=== PATIENT | female | born 1970 ===

== ENCOUNTER 2020-03-13 12:06 | Emergency (ER) | payer MEDICARE, MEDICAID, SELFPAY ==
[2020-03-13 12:12] VITALS: BP 137/86; PULSE 83; RESP 16; TEMP 36.2; O2SAT 98; BMI 30.1
--- NOTE | 2020-03-13 12:22 | W.ED.URI ---
HPI - URI/Sore Throat General: Chief Complaint: General Medical Stated Complaint: covid symtpoms Time Seen by Provider: 03/13/20 12:21 Source: patient Mode of arrival: ambulatory Limitations: no limitations History of Present Illness: HPI Narrative: Patient is a 49-year-old female who presents to ED today stating she has positive exposure to COVID. Patient tells me she has had a minor cough for a week. She has absolutely no other symptoms. She has not been running fevers. MD elicited complaint: cough Able to tolerate fluids by mouth: Yes Associated symptoms: Deny abdominal pain, chills, chest pain, diarrhea, epistaxis, ear or mastoid pain, fever(s), headache(s), nasal congestion, nausea or vomiting Review of Systems Const: Denies: fever(s), chills, body aches, fatigue or malaise Eyes: Denies: change in vision or blurry vision ENMT: Denies: throat pain, odynophagia, ear or mastoid pain, change in hearing, nasal congestion or epistaxis Card: Denies: chest pain, palpitations, irregular heart rhythm, edema, swelling of feet/ankles, lightheadedness, syncope, pre-syncope, dyspnea on exertion or orthopnea Resp: Reports: non-productive cough; Denies: dyspnea, productive cough, wheezing, stridor, pain on inspiration, change in phlegm color, hemoptysis or chest congestion GI: Denies: abdominal pain, nausea, vomiting, heartburn or diarrhea : Denies: dysuria Musc: Denies: neck pain, back pain or joint pain Skin/Breast: Denies: rash Neuro: Denies: headache(s), numbness in extremities, weakness in extremities, sensory changes, difficulty walking or dizziness Physical Exam Const: COMMON NORMALS: no acute distress, average body habitus, patient oriented x3, no limitations, healthy appearing, alert and well nourished HENMT: COMMON NORMALS: normocephalic and atraumatic HEAD & SCALP: normocephalic and atraumatic Neck/C-Spine: COMMON NORMALS: full ROM, no lymphadenopathy and no meningeal signs Chest: COMMONS NORMALS: normal inspection of the chest and normal palpation of entire chest wall Resp: COMMON NORMALS: normal respiratory effort and clear to auscultation bilaterally AUSCULTATION: clear to auscultation bilaterally Cardio: COMMON NORMALS: regular rate and regular rhythm RATE: regular rate RHYTHM: regular rhythm GI: COMMON NORMALS: Normal to inspection, nondistended, normoactive bowel sounds present, Soft to palpation, non-tender, No hepatosplenomegaly present and no masses PALPATION: Yes Soft to palpation and Yes No hepatosplenomegaly present Neuro: LEONOR COMA SCALE: document GCS findings Leonor coma scale eye opening: Spontaneous Leonor coma scale verbal response: Orientated [place] coma scale motor response: Obey commands Leonor coma scale total score: 15 COMMON NORMALS: patient oriented x3 SENSORIUM/ORIENTATION: Yes alert MENINGEAL SIGNS: Yes no meningeal signs Skin: COMMON NORMALS: no rashes or lesions noted GENERAL SKIN EXAM: no rashes or lesions noted Course Vital Signs: Vital signs: Vital Signs Temperature 97.1 F L 03/13/20 12:12 Pulse Rate 83 03/13/20 12:12 Respiratory Rate 18 03/13/20 12:44 Blood Pressure 137/86 03/13/20 12:12 Pulse Oximetry 98 03/13/20 12:12 MDM - URI/Sore Throat MDM Narrative: Medical decision making narrative: Patient clinically is in absolutely no acute distress. Her vital signs are stable. Her only symptom is a minor cough for a week. Her lung sounds are normal. At this time there is absolutely no indication for imaging or lab work from the emergency department. I will obtain outpatient COVID swab and patient is stable for discharge with quarantine instructions. Discharge Plan Discharge Patient Disposition: Home Clinical Impression: Cough with exposure to COVID-19 virus Condition: Stable Discharge Orders: Discharge Order (Routine); Ordered 03/13/20 Ordered By: Amarilys Pisano Referrals: Cedrick Roper MD [Primary Care Provider] - Activity Restrictions/Additional Instructions: You need to quarantine until you obtain results of your COVID swab. If positive you need to continue to quarantine for another 7 days. Discharge Date/Time: 03/13/20 13:01 Coding Level of Care Code ED Motor Vehicle Light Assembler for Chg Fwd Exam Comprehensive
[2020-03-13 12:44] VITALS: RESP 18
--- NOTE | 2020-03-13 13:01 | PC.NURSE ---
patient swabbed for covid at this time
[2020-03-14 13:22] LABS: Quest SARS-CoV-2 RNA DETECTED (NOT DETECTED)
== END 2020-03-13 13:01 | disposition home or self-care (01) ==
LOC: ER 12:39
PROVIDERS: Emergency Provider Physician Assistant; PCP Family Medicine
DX: U07.1 COVID-19 (principal)
CPT/HCPCS: 12345; 87635; 99281; 99282

== ENCOUNTER 2020-03-31 01:42 | Emergency (ER) | payer MEDICARE, MEDICAID, SELFPAY ==
[2020-03-31 01:52] VITALS: BP 123/95; PULSE 94; RESP 16; TEMP 36.9; O2SAT 94; BMI 30.9
--- NOTE | 2020-03-31 01:56 | ED_ITS ---
HPI - Extremity Problem General: Chief complaint: Extremity Injury, Lower Stated complaint: abrasion on left ankle Time Seen by Provider: 03/31/20 01:49 History of Present Illness: HPI Narrative: Patient is a 49-year-old female comes to the ED with an abrasion on left ankle with concerns of possible infection. For the past couple days patient has had an abrasion on left ankle and that is gotten more tender and red. No purulent drainage. Associated symptoms: Deny chest pain, fever(s) or rash Review of Systems Const: Denies: fever(s), chills or fatigue Eyes: Denies: change in vision or eye discomfort ENMT: Denies: throat pain, odynophagia, nasal discharge or nasal congestion Card: Denies: chest pain, palpitations, edema, swelling of feet/ankles, dyspnea on exertion or orthopnea Resp: Denies: dyspnea, productive cough or non-productive cough GI: Denies: abdominal pain, nausea, vomiting, diarrhea, constipation or hematochezia : Denies: flank pain, dysuria or hematuria Musc: Denies: neck pain, back pain or extremity swelling Skin/Breast: Reports: new lesions (Abrasion on left ankle.); Denies: rash Neuro: Denies: headache(s), numbness in extremities or weakness in extremities Physical Exam Const: COMMON NORMALS: no acute distress, patient oriented x3, healthy appe aring and alert EXAM LIMITATIONS: other limitations (Mental Developmental disorder.) GENERAL APPEARANCE: cooperative and comfortable HENMT: COMMON NORMALS: normocephalic HEAD & SCALP: normocephalic MOUTH: Normal oral and palatal mucosa present THROAT: posterior oropharynx normal and uvula midline Eye: COMMON NORMALS: Equal, round and reactive pupils present PUPIL: Yes Equal, round and reactive pupils present Neck/C-Spine: COMMON NORMALS: supple GENERAL: Yes normal visual inspection Resp: COMMON NORMALS: normal respiratory effort, No retractions, No use of accessory muscles and clear to auscultation bilaterally AUSCULTATION: clear to auscultation bilaterally Cardio: COMMON NORMALS: regular rate, regular rhythm, S1 normal heart sound present, S2 normal heart sound present, No gallops present (Cardio), No clicks present (Cardio), No murmurs present (Cardio) and Peripheral pulses 2+ throughout RATE: regular rate RHYTHM: regular rhythm HEART SOUNDS: S1 normal heart sound present and S2 normal heart sound present PERIPHERAL PULSES: Peripheral pulses 2+ throughout GI: COMMON NORMALS: Normal to inspection, nondistended, normoactive bowel sounds present, Soft to palpation, non-tender and no masses PALPATION: Yes Soft to palpation : COMMON NORMALS: Yes no CVA tenderness BLADDER/KIDNEY EXAM: Yes no CVA tenderness Back/Pelvis: COMMON NORMALS: no CVA tenderness Extremity: COMMON NORMALS: no pedal edema NARRATIVE EXTREMITY EXAM: Superficial abrasion with surrounding erythema and warmth. Tender to palpation. Suggestive of some developing cellulitis. GENERAL: Yes normal exam except as noted Neuro: COMMON NORMALS: patient oriented x3 and moves all extremities SENSORIUM/ORIENTATION: Yes alert Skin: NARRATIVE SKIN EXAM: Superficial abrasion with surrounding erythema and warmth. Tender to palpation. Suggestive of some developing cellulitis. GENERAL SKIN EXAM: dry skin Course Vital Signs: Vital signs: Vital Signs Temperature 98.4 F 03/31/20 01:52 Pulse Rate 94 03/31/20 01:52 Respiratory Rate 16 03/31/20 01:52 Blood Pressure 123/95 03/31/20 01:52 Pulse Oximetry 94 03/31/20 01:52 MDM - Extremity (Nontraumatic) MDM Narrative: Medical decision making narrative: Patient is a 49-year-old female comes in the ED with an abrasion on left ankle. Physical exam shows some erythema, warmth and tenderness surrounding the abrasion, suggestive of cellulitis. Patient was sent home with a prescription for cephalexin and told to follow-up with PCP in 7 to 10 days for reevaluation. Return to ED precautions given. Patient understood and agree with plan. Discharge Plan Discharge Patient Disposition: Home Clinical Impression: Cellulitis Qualifiers: Site of cellulitis: extremity Site of cellulitis of extremity: lower extremity Laterality: left Qualified Code(s): L03.116 - Cellulitis of left lower limb Condition: Stable Prescriptions: New cephalexin 500 mg capsule 500 mg PO BID 7 Days Qty: 14 RF: 0 Discharge Orders: Discharge Order (Routine); Ordered 03/31/20 Ordered By: Kana Barraza Referrals: Cedrick Roper MD [Primary Care Provider] - Discharge Diet: Regular Discharge Activity: Resume usual activity Patient Instructions: Cellulitis (ED) Activity Restrictions/Additional Instructions: Follow-up with medical provider as directed in 7-10 days. Take medications as prescribed. Return to the ER or your medical provider if condition worsens. Please read and understand discharge instructions. If any questions, please ask. Discharge Date/Time: 03/31/20 02:51 Coding Level of Care Code ED Wedding Transportation Driver for Ariella Fwfranklyn Exam Comprehensive
[2020-03-31] MEDS: cephALEXin 500 mg Capsule PO (02:34)
== END 2020-03-31 02:51 | disposition home or self-care (01) ==
PROVIDERS: Emergency Provider Physician Assistant; PCP Family Medicine
DX: L03.116 Cellulitis of left lower limb (principal)
CPT/HCPCS: 12345; 99281; 99282

== ENCOUNTER → 2020-04-12 10:08 | Outpatient (BNVA) | payer MEDICARE, MEDICAID, SELFPAY | PROVIDERS: PCP Family Medicine; Visit Provider Family Medicine Adult Medicine | DX: E03.9 Hypothyroidism, unspecified (principal); Z00.00 Encounter for general adult medical examination without abnormal findings | CPT/HCPCS: 80053; 80061; 84443; 85025 ==

== ENCOUNTER → 2020-04-13 10:08 | Outpatient (BNVA) | payer MEDICARE, MEDICAID, SELFPAY | PROVIDERS: PCP Family Medicine; Referring Provider Family Medicine Adult Medicine; Visit Provider Podiatrist Foot & Ankle Surgery | DX: M79.671 Pain in right foot (principal); M79.672 Pain in left foot; M20.12 Hallux valgus (acquired), left foot; M20.11 Hallux valgus (acquired), right foot | CPT/HCPCS: 73630 ==

== ENCOUNTER → 2020-10-14 08:25 | Outpatient (BNVA) | payer MEDICARE, MEDICAID, SELFPAY | PROVIDERS: PCP Family Medicine Adult Medicine; Visit Provider Family Medicine Adult Medicine | DX: E03.9 Hypothyroidism, unspecified (principal); R74.8 Abnormal levels of other serum enzymes | CPT/HCPCS: 80053; 84443 ==

== ENCOUNTER → 2021-01-03 10:36 | Outpatient (BNVA) | payer MEDICARE, MEDICAID, SELFPAY | PROVIDERS: PCP Family Medicine Adult Medicine; Visit Provider Family Medicine Adult Medicine | DX: R21 Rash and other nonspecific skin eruption (principal); E03.9 Hypothyroidism, unspecified; L01.00 Impetigo, unspecified; L23.9 Allergic contact dermatitis, unspecified cause | CPT/HCPCS: 84443 ==

== ENCOUNTER → 2021-01-13 14:30 | Outpatient (BNVA) | payer MEDICARE, MEDICAID, SELFPAY | PROVIDERS: PCP Family Medicine Adult Medicine; Visit Provider Registered Nurse Neonatal Intensive Care | DX: N39.0 Urinary tract infection, site not specified (principal) | CPT/HCPCS: 81000 ==

== ENCOUNTER 2021-03-20 21:21 | Emergency (ER) | payer MEDICARE, MEDICAID, SELFPAY ==
[2021-03-20 21:36] VITALS: BP 146/89; PULSE 80; RESP 16; TEMP 36.8; O2SAT 95; BMI 31.8
--- NOTE | 2021-03-21 00:50 | W.ED.ABDPA2 ---
HPI - Abdominal Pain General: Chief Complaint: Abdominal Pain Stated Complaint: left side pain Time Seen by Provider: 03/21/21 00:50 History of Present Illness: HPI narrative: Ms. Keys is a 50-year-old lady with significant past medical history of hypothyroidism who presents emerge department due to abdominal pain. Symptom onset was gradual yesterday and pain is primarily in the left upper quadrant. It is feels achy and sharp. It is continually worsened. There are no specific exacerbating relieving factors that she can identify. No associated fevers, chills, nausea, vomiting, chest pain, or changes in bowel movements. She has had normal bowel movements. She denies similar episodes in the past. No history of abdominal surgeries. Review of Systems General: Reports: 10 or more systems reviewed and unremarkable except in HPI and below Narrative: CONSTITUTIONAL: denies fever, fatigue, weakness EYES - denies pain, denies loss of vision EARS - denies ear issues. NOSE - denies congestion or rhinorrhea. THROAT - denies sore throat or difficulty swallowing. CARDIOVASCULAR - denies chest pain and palpitations RESPIRATORY - denies shortness of breath and cough GASTROINTESTINAL -see HPI GENITOURINARY - denies dysuria or urinary frequency MUSCULOSKELETAL- denies deformity or pain SKIN - denies rashes or new changed skin lesions NEUROLOGIC - denies focal weakness or sensory changes HEMATOLOGIC/LYMPHATIC - denies easy bruising or lymphadenopathy. PFS ED PFSH: Medical History Adult hypothyroidism Allergic contact dermatitis Cellulitis of left ankle Encounter for wellness examination Impetigo any site Social History Smoking and tobacco status: never smoked Second hand smoke exposure: No Alcohol intake: never Desire information about alcohol rehabilitation?: No Desire information about substance/drug rehabilitation?: No Physical Exam Narrative: EXAM NARRATIVE: GENERAL/CONSTITUTIONAL - well-appearing. No acute distress. Eyes - PERRL, no conjunctival injection ENMT - Atraumatic external nose and ears. Moist mucous membranes NECK - supple. trachea midline CARDIOVASCULAR - regular rate and rhythm. Peripheral pulses 2+ and equal RESPIRATORY -clear to auscultation bilaterally. No retractions or accessory muscle use. ABDOMEN/GI -moderate tenderness to palpation in the left upper quadrant without rebound. No remote evidence of peritonitis MSK - Extremities without obvious deformity or tenderness to palpation SKIN - Warm, Dry NEURO - alert and appropriately oriented. strength and sensation intact. Moves all extremities equally. PSYCH - Appropriate mood and affect Course ED course: - Patient was seen and evaluated by me at bedside - Patient placed on cardiac monitors, IV access obtained - Initial evaluation notable for no acute distress, nontoxic appearance. - Labs notable for no significant abnormalities - Imaging notable for as noted and read - Upon serial reexamination after treatment the patient was similar - Based on patient history, evaluation, labs, and imaging as interpreted the most likely cause of the patient's condition is unclear, may be pneumonia per radiology read and/or epiploic appendagitis and/or mild colitis. - The results of ED evaluation were discussed with the patient including prescriptions and/or symptomatic cares (if applicable) including appropriate and responsible use, followup plan, and return precautions. The patient verbalized understanding and felt safe for discharge. - Initially wrote for Augmentin for dual coverage however apparently the patient has had urinary tract infections after taking Augmentin and thus this was changed to Cipro Flagyl. - Patient discharged in satisfactory condition. Vital Signs: Vital signs: Vital Signs Temperature 98.2 F 03/20/21 21:36 Pulse Rate 78 03/21/21 05:01 Respiratory Rate 18 03/21/21 05:01 Blood Pressure 112/71 03/21/21 05:01 Pulse Oximetry 97 03/21/21 05:01 MDM - Abdominal Pain Medical Records: Attestation: I reviewed the patient's medical records. Lab Data: Attestation: I reviewed the patient's lab results. Labs: Lab Results 03/21/21 03/21/21 03/21/21 Range/Units 02:00 02:00 02:00 WBC 7.7 (4.0-10.0) 10^3/ uL RBC 4.87 (4.1-5.3) 10^6/u L Hgb 15.1 (11.5-15.3) g/dL Hct 44.2 (37.0-47.0) % MCV 90.8 (81-99) fl MCH 31.0 (28.0-34.0) pg MCHC 34.2 (30.0-36.0) g/dL RDW 12.0 L (12.1-15.1) % Plt Count 166 (130-400) 10^3/c mm MPV 13.2 H (7.4-10.4) fL Neut % (Auto) 61.6 % Lymph % (Auto) 25.1 % Mccreary % (Auto) 10.7 % Eos % (Auto) 1.9 % Baso % (Auto) 0.4 % Neut # (Auto) 4.77 (1.8-7.7) 10^3/u L Lymph # (Auto) 1.9 (0.8-4.8) 10^3/u L Mccreary # (Auto) 0.8 (0.2-0.9) 10^3/u L Eos # (Auto) 0.2 (0.0-0.8) 10^3/u L Baso # (Auto) 0.0 (0.0-0.1) 10^3/u L Nucleated RBC % (a uto) 0 % Nucleated RBCs # 0.0 /100WBC Sodium Cancelled Potassium Cancelled Chloride Cancelled Carbon Dioxide Cancelled Anion Gap Cancelled BUN Cancelled Creatinine Cancelled GFR Calculation Cancelled Glucose Cancelled Calculated Osmolal ity Cancelled Lactate 1.0 (0.5-2.2) mmol/L Calcium Cancelled Total Bilirubin Cancelled AST Cancelled ALT Cancelled Alkaline Phosphata se Cancelled Troponin T Baselin e Total Protein Cancelled Albumin Cancelled Globulin Cancelled Lipase Cancelled Urine Color (Yellow) Urine Appearance (CLEAR) Urine pH (5-7) Ur Specific Gravit y (1.005-1.030) Urine Protein (Negative) Urine Glucose (UA) (Normal) Urine Ketones (Negative) Urine Blood (Negative) Urine Nitrate (Negative) Urine Bilirubin (Negative) Urine Urobilinogen (Negative) mg/dL Ur Leukocyte Madison ase (Negative) 03/21/21 03/21/21 03/21/21 Range/Units 02:00 03:08 03:15 WBC (4.0-10.0) 10^3/ uL RBC (4.1-5.3) 10^6/u L Hgb (11.5-15.3) g/dL Hct (37.0-47.0) % MCV (81-99) fl MCH (28.0-34.0) pg MCHC (30.0-36.0) g/dL RDW (12.1-15.1) % Plt Count (130-400) 10^3/c mm MPV (7.4-10.4) fL Neut % (Auto) % Lymph % (Auto) % Mccreary % (Auto) % Eos % (Auto) % Baso % (Auto) % Neut # (Auto) (1.8-7.7) 10^3/u L Lymph # (Auto) (0.8-4.8) 10^3/u L Mccreary # (Auto) (0.2-0.9) 10^3/u L Eos # (Auto) (0.0-0.8) 10^3/u L Baso # (Auto) (0.0-0.1) 10^3/u L Nucleated RBC % (a uto) % Nucleated RBCs # /100WBC Sodium 140 Potassium 4.3 Chloride 106 Carbon Dioxide 23 Anion Gap 15.3 BUN 15 Creatinine 0.6 GFR Calculation 105.0 Glucose 94 Calculated Osmolal ity 291 Lactate (0.5-2.2) mmol/L Calcium 8.6 Total Bilirubin 0.3 AST 19 ALT 29 Alkaline Phosphata se 71 Troponin T Baselin e Cancelled Total Protein 6.8 Albumin 4.1 Globulin 2.7 Lipase 31 Urine Color Yellow (Yellow) Urine Appearance Clear (CLEAR) Urine pH 5 (5-7) Ur Specific Gravit y 1.010 (1.005-1.030) Urine Protein Neg (Negative) Urine Glucose (UA) Norm (Normal) Urine Ketones Negative (Negative) Urine Blood Neg (Negative) Urine Nitrate Negative (Negative) Urine Bilirubin Neg (Negative) Urine Urobilinogen Norm (Negative) mg/dL Ur Leukocyte Madison ase Negative (Negative) 03/21/21 Range/Units 03:15 WBC (4.0-10.0) 10^3/ uL RBC (4.1-5.3) 10^6/u L Hgb (11.5-15.3) g/dL Hct (37.0-47.0) % MCV (81-99) fl MCH (28.0-34.0) pg MCHC (30.0-36.0) g/dL RDW (12.1-15.1) % Plt Count (130-400) 10^3/c mm MPV (7.4-10.4) fL Neut % (Auto) % Lymph % (Auto) % Mccreary % (Auto) % Eos % (Auto) % Baso % (Auto) % Neut # (Auto) (1.8-7.7) 10^3/u L Lymph # (Auto) (0.8-4.8) 10^3/u L Mccreary # (Auto) (0.2-0.9) 10^3/u L Eos # (Auto) (0.0-0.8) 10^3/u L Baso # (Auto) (0.0-0.1) 10^3/u L Nucleated RBC % (a uto) % Nucleated RBCs # /100WBC Sodium Potassium Chloride Carbon Dioxide Anion Gap BUN Creatinine GFR Calculation Glucose Calculated Osmolal ity Lactate (0.5-2.2) mmol/L Calcium Total Bilirubin AST ALT Alkaline Phosphata se Troponin T Baselin e 6 Total Protein Albumin Globulin Lipase Urine Color (Yellow) Urine Appearance (CLEAR) Urine pH (5-7) Ur Specific Gravit y (1.005-1.030) Urine Protein (Negative) Urine Glucose (UA) (Normal) Urine Ketones (Negative) Urine Blood (Negative) Urine Nitrate (Negative) Urine Bilirubin (Negative) Urine Urobilinogen (Negative) mg/dL Ur Leukocyte Madison ase (Negative) Discharge Plan Discharge Patient Disposition: Home Clinical Impression: Abdominal pain, Epiploic appendagitis, Community acquired pneumonia Condition: Stable Prescriptions: New ciprofloxacin HCl 500 mg tablet 500 mg PO BID 7 Days Qty: 14 RF: 0 Flagyl 500 mg tablet 500 mg PO Q8H 7 Days Qty: 21 RF: 0 No Action multivitamin Capsule 1 cap PO DAILY RF: 0 zinc 50 mg tablet 50 mg PO DAILY RF: 0 acetaminophen 500 mg capsule 500 mg PO Q6H PRNRF: 0 K2 Plus D3 1,000-100 unit-mcg tablet 1 tab PO DAILY RF: 0 nitrofurantoin monohyd/m-cryst [Macrobid] 100 mg capsule 100 mg PO BID 5 Days Qty: 10 RF: 0 levothyroxine 75 mcg tablet 75 mcg PO DAILY 90 Days Qty: 90 RF: 0 Discharge Orders: Discharge ED (Routine); Ordered 03/21/21 Ordered By: Regulo Smith Referrals: Wale Newton MD [Primary Care Provider] - Discharge Diet: Usual diet Discharge Activity: Resume usual activity Patient Instructions: Abdominal Pain (ED), Pneumonia (ED), Infectious Colitis (ED) Coding Level of Care Code ED Regional Business Manager for Ariella Ziegler
--- NOTE | 2021-03-21 00:56 | XRR_ITS ---
PROCEDURE INFORMATION: Exam: XR Chest Exam date and time: 03/21/2021 12:56 AM Age: 50 years old Clinical indication: Pain; Left-sided; Additional info: Left side pain, ? referred TECHNIQUE: Imaging protocol: XR of the chest. Views: 1 view. COMPARISON: No relevant prior studies available. FINDINGS: Lungs: Low lung volumes. There is a patchy airspace opacity in the left lower lobe, concerning for pneumonia. Minimal right basilar atelectasis noted. Pleural spaces: Unremarkable. No pleural effusion. No pneumothorax. Heart/Mediastinum: Unremarkable. No cardiomegaly. Bones/joints: Unremarkable. XR/XR chest 1V portable [id number] IMPRESSION: Imaging findings concerning for left lower lobe pneumonia, clinical correlation is recommended.
--- NOTE | 2021-03-21 00:56 | CTR_ITS ---
PROCEDURE INFORMATION: Exam: CT Abdomen And Pelvis With Contrast Exam date and time: 03/21/2021 12:56 AM Age: 50 years old Clinical indication: Abdominal pain; Localized; Left; Additional info: Luq pain TECHNIQUE: Imaging protocol: Computed tomography of the abdomen and pelvis with contrast. Radiation optimization: All CT scans at this facility use at least one of these dose optimization techniques: automated exposure control; mA and/or kV adjustment per patient size (includes targeted exams where dose is matched to clinical indication); or iterative reconstruction. Contrast material: OMNI 300; Contrast volume: 95 ml; Contrast route: INTRAVENOUS (IV); COMPARISON: CR (CHEST, ) 03/21/2021 1:38 AM RADIATION DOSE METRICS: Total DLP (mGy-cm): 1856.83 FINDINGS: Lungs: Streaky bibasilar atelectasis noted. No consolidation. Liver: The liver is diffusely decreased in density, compatible with hepatic steatosis. No discrete mass lesion identified. Gallbladder and bile ducts: Normal. No calcified stones. No ductal dilation. Pancreas: Normal. No ductal dilation. Spleen: Normal. No splenomegaly. Adrenal glands: Normal. No mass. Kidneys and ureters: Normal. No hydronephrosis. Stomach and bowel: Along the anterior aspect/anti mesenteric border of the proximal descending colon, there is an ovoid fat density structure measuring approximately 2.5 cm in length, with thin density rim, mild stranding of the surrounding fat, and possible minimal thickening of the adjacent colon wall, which is out of proportion to the degree of inflammation surrounding this lesion. Scattered colonic diverticuli seen. Appendix: No evidence of appendicitis. Intraperitoneal space: Unremarkable. No free air. No significant fluid collection. Vasculature: Unremarkable. No abdominal aortic aneurysm. Lymph nodes: Unremarkable. No enlarged lymph nodes. Urinary bladder: Unremarkable as visualized. Reproductive: Unremarkable as visualized. Bones/joints: Unremarkable. No acute fracture. Soft tissues: Unremarkable. CT/CT abdomen pelvis w con* [id number] IMPRESSION: Imaging findings of epiploic appendagitis in the proximal descending colon. Mild/early diverticulitis can have this appearance. Radiation Dose CTDIVOL = (mGy): DLP = 1856.83 (mGy-cm)
[2021-03-21] MEDS: sodium chloride 0.9% 500 ML IV (01:50)
[2021-03-21] MEDS: ketorolac 30 mg/mL INJ 15 MG IVP (01:55)
[2021-03-21] MEDS: acetaminophen 325 mg Tablet 650 MG PO (02:00)
[2021-03-21] MEDS: iohexol 300 mg/mL 100 mL Btl IV (02:30)
[2021-03-21 02:36] LABS: Basophils % 0.4 %; Eosinophils # 0.2 10^3/uL (0.0-0.8); Eosinophils % 1.9 %; Hematocrit 44.2 % (37.0-47.0); Hemoglobin 15.1 g/dL (11.5-15.3); Lymphocytes # 1.9 10^3/uL (0.8-4.8); Lymphocytes % 25.1 %; Mean Corpuscular HGB Conc 34.2 g/dL (30.0-36.0); Mean Corpuscular Volume 90.8 fl (81-99); Mean Platelet Volume 13.2 fL (7.4-10.4); Monocytes # 0.8 10^3/uL (0.2-0.9); Monocytes % 10.7 %; Neutrophils # 4.77 10^3/uL (1.8-7.7); Neutrophils % 61.6 %; Nucleated Red Blood Cells % 0 %; Platelet Count 166 10^3/cmm (130-400); Red Blood Count 4.87 10^6/uL (4.1-5.3); White Blood Count 7.7 10^3/uL (4.0-10.0)
[2021-03-21 03:25] LABS: Add Urine Microscopic? NO; Charge for UA Resulting for Rev
[2021-03-21 03:28] LABS: Bilirubin Urine Neg (Negative); Blood Urine Neg (Negative); Glucose Urine UA Norm (Normal); Ketones Urine Negative (Negative); Leukocyte Esterase Urine Negative (Negative); Nitrate Urine Negative (Negative); Protein Urine Neg (Negative); Urine Appearance Clear (CLEAR); Urine Color Yellow (Yellow); Urobilinogen Urine Norm (Negative); pH Urine 5 (5-7)
[2021-03-21 04:01] VITALS: BP 108/73; PULSE 84; RESP 18; O2SAT 97
[2021-03-21 04:03] LABS: Troponin(5th) Baseline 6 ng/L (0-10)
[2021-03-21 04:04] LABS: Alanine Aminotransferase 29 U/L (0-33); Albumin Level 4.1 g/dL (3.5-5.2); Alkaline Phosphatase 71 IU/L (35-105); Anion Gap 15.3 (5-19); Aspartate Amino Transferase 19 U/L (0-32); Blood Urea Nitrogen 15 mg/dL (6-20); Calcium 8.6 mg/dL (8.5-10.5); Carbon Dioxide 23 mmol/L (22-29); Chloride 106 mmol/L (98-107); Globulin 2.7 g/dL (1.3-4.6); Glucose 94 mg/dL (65-115); Lipase 31 U/L (13-60); Osmolality Calculated 291 mOsm/kg (285-295); Potassium 4.3 mmol/L (3.5-5.1); Sodium 140 mmol/L (136-145); Total Bilirubin 0.3 mg/dL (0.15-1.2); Total Protein 6.8 g/dL (6.6-8.7)
[2021-03-21 05:01] VITALS: BP 112/71; PULSE 78; RESP 18; O2SAT 97
== END 2021-03-21 05:00 | disposition home or self-care (01) ==
PROVIDERS: Emergency Provider Emergency Medicine; PCP Family Medicine Adult Medicine
DX: J18.9 Pneumonia, unspecified organism (principal); K63.89 Other specified diseases of intestine
CPT/HCPCS: 71045; 74177; 80053; 81003; 83605; 83690; 84484; 85025; 96361; 96374; 99283; J1885; J7040; Q9967

== ENCOUNTER → 2021-03-31 08:14 | Outpatient (BNVA) | payer MEDICARE, MEDICAID, SELFPAY | PROVIDERS: PCP Family Medicine Adult Medicine; Visit Provider Family Medicine Adult Medicine | DX: E03.9 Hypothyroidism, unspecified (principal); Z13.220 Encounter for screening for lipoid disorders; Z13.6 Encounter for screening for cardiovascular disorders | CPT/HCPCS: 80061; 84443 ==

== ENCOUNTER → 2021-06-20 10:24 | Outpatient (BNVA) | payer MEDICARE, MEDICAID, SELFPAY | PROVIDERS: PCP Family Medicine Adult Medicine; Visit Provider Family Medicine Adult Medicine | DX: Z00.00 Encounter for general adult medical examination without abnormal findings (principal); E03.9 Hypothyroidism, unspecified; Z23 Encounter for immunization | CPT/HCPCS: 84443 ==

== ENCOUNTER 2021-09-14 11:38 | Outpatient (CLI) | payer MEDICARE, MEDICAID, SELFPAY ==
--- NOTE | 2021-09-14 11:44 | MM_ITS ---
WS: [id number] BILATERAL DIGITAL SCREENING MAMMOGRAPHY WITH CAD AND 3-D TOMOSYNTHESIS CLINICAL INFORMATION: screening HISTORY: Screening mammogram. No current complaints. COMPARISON: TECHNIQUE: Bilateral CC and MLO views. FINDINGS: Scattered fibroglandular densities bilaterally. A few incidental stable amorphous calcifications uppe r outer LEFT breast. No suspicious focal mass, asymmetry, calcifications, or architectural distortion . No evidence of malignancy. MM/[place] [id number] IMPRESSION: BI-RADS: 2-Benign FOLLOW UP: 1 Year Follow-up Recommend return to annual screening mammography.
== END 2021-09-14 11:39 | disposition home or self-care (01) ==
LOC: RADSHAW 11:41
PROVIDERS: PCP Family Medicine Adult Medicine; Visit Provider Family Medicine Adult Medicine
DX: Z12.31 Encounter for screening mammogram for malignant neoplasm of breast (principal)
CPT/HCPCS: 77063; 77067

== ENCOUNTER → 2021-09-20 11:18 | Outpatient (BNVA) | payer MEDICAID, SELFPAY | PROVIDERS: PCP Family Medicine Adult Medicine; Visit Provider Family Medicine Adult Medicine | DX: Z00.00 Encounter for general adult medical examination without abnormal findings (principal) | CPT/HCPCS: 80053; 80061; 83036; 84443; 85025 ==

== ENCOUNTER 2021-09-25 21:58 | Emergency (ER) | payer MEDICARE, MEDICAID, SELFPAY ==
[2021-09-25 22:13] VITALS: BP 143/84; PULSE 83; RESP 18; TEMP 36.9; O2SAT 96; BMI 31.3
--- NOTE | 2021-09-26 00:08 | W.ED.DENTAL ---
HPI - Dental/Oral General: Chief complaint: Dental/Oral Stated complaint: Absessed Tooth Time Seen by Provider: 09/25/21 23:43 History of Present Illness: Patient is a 51-year-old female comes to the ED with dental pain. She started developing dental pain in the left lower jaw approximately 3 days ago. Today she started developing swelling in her left mandible. She rates her pain a 10 out of 10. Denies any other symptoms. She has a dentist she set up to see the next couple weeks. Associated symptoms: Denies fever(s) or odynophagia Review of Systems Const: Denies: fever(s), chills or fatigue Eyes: Denies: change in vision or eye discomfort ENMT: Reports: dental pain; Denies: throat pain, odynophagia, nasal discharge or nasal congestion Card: Denies: chest pain, palpitations, edema, swelling of feet/ankles, dyspnea on exertion or orthopnea Resp: Denies: dyspnea, productive cough or non-productive cough GI: Denies: abdominal pain, nausea, vomiting, diarrhea, constipation or hematochezia : Denies: flank pain, dysuria or hematuria Musc: Denies: neck pain, back pain or extremity swelling Skin/Breast: Denies: rash or new lesions Neuro: Denies: headache(s), numbness in extremities or weakness in extremities PFSH ED PFSH: Medical History Adult hypothyroidism Allergic contact dermatitis COVID Pos COVID test 03/13/2021 GERD (gastroesophageal reflux disease) Impetigo any site Obesity Stress incontinence, female Social History Smoking and tobacco status: never smoked Second hand smoke exposure: No Alcohol intake: never Desire information about alcohol rehabilitation?: No Desire information about substance/drug rehabilitation?: No Physical Exam Const: COMMON NORMALS: no acute distress, patient oriented x3 and alert GENERAL APPEARANCE: cooperative and comfortable HENMT: COMMON NORMALS: normocephalic HEAD & SCALP: normocephalic FACE & SINUS: edema on the left mandible MOUTH: Normal oral and palatal mucosa present TEETH & GINGIVA: Yes abnormal tooth and associated gingiva lower left second molar tender and with associated gingival edema, Yes caries and Yes poor dentition THROAT: posterior oropharynx normal and uvula midline Neck/C-Spine: COMMON NORMALS: supple GENERAL: Yes normal visual inspection Resp: COMMON NORMALS: normal respiratory effort, No retractions, No use of accessory muscles and clear to auscultation bilaterally AUSCULTATION: clear to auscultation bilaterally Cardio: COMMON NORMALS: regular rate, regular rhythm, S1 normal heart sound present, S2 normal heart sound present, No gallops present (Cardio), No clicks present (Cardio), No murmurs present (Cardio) and Peripheral pulses 2+ throughout RATE: regular rate RHYTHM: regular rhythm HEART SOUNDS: S1 normal heart sound present and S2 normal heart sound present PERIPHERAL PULSES: Peripheral pulses 2+ throughout GI: COMMON NORMALS: Normal to inspection, nondistended, normoactive bowel sounds present, Soft to palpation, non-tender and no masses PALPATION: Yes Soft to palpation : COMMON NORMALS: Yes no CVA tenderness BLADDER/KIDNEY EXAM: Yes no CVA tenderness Back/Pelvis: COMMON NORMALS: no CVA tenderness Extremity: COMMON NORMALS: normal to inspection Neuro: COMMON NORMALS: patient oriented x3 and moves all extremities SENSORIUM/ORIENTATION: Yes alert Skin: GENERAL SKIN EXAM: dry skin Course Vital Signs: Vital signs: Vital Signs Temperature 98.5 F 09/25/21 22:13 Pulse Rate 82 09/26/21 00:26 Respiratory Rate 18 09/26/21 00:26 Blood Pressure 143/84 09/25/21 22:13 Pulse Oximetry 96 09/26/21 00:26 MDM - Dental/Oral Medical Decision Making Patient is a 51-year-old female comes to the ED with dental pain on left mandible. She has some mild left mandible facial swelling. Poor dentition with some left left lower molar dental decay and gingival edema. She appears nontoxic in no acute distress. Vitals are stable. Patient diagnosed dental infection and was discharged home with a prescription for clindamycin. She has a dentist that she will be following up with in the next couple weeks. Return to ED precautions given. Patient understood and agreed with plan. Discharge Plan Discharge Patient Disposition: Home Clinical Impression: Dental infection Condition: Stable Prescriptions: New clindamycin HCl 150 mg capsule 150 mg PO QID 7 Days Qty: 28 0RF No Action multivitamin Capsule 1 cap PO DAILY 0RF acetaminophen 500 mg capsule 500 mg PO Q6H PRN0RF K2 Plus D3 1,000-100 unit-mcg tablet 1 tab PO DAILY 0RF oxybutynin chloride 10 mg tablet extended release 24hr 10 mg PO DAILY Qty: 30 5RF levothyroxine 100 mcg tablet 100 mcg PO DAILY Qty: 90 3RF pantoprazole 20 mg tablet,delayed release (DR/EC) See Rx Instructions .ROUTE .COMPLEX 90 Days Qty: 90 1RF Dose Instruction: TAKE 1 TABLET BY MOUTH AT BEDTIME NEEDED FOR ACID REFLUX Rx Instructions: TAKE 1 TABLET BY MOUTH AT BEDTIME NEEDED FOR ACID REFLUX ascorbic acid (vitamin C) PO DAILY 0RF Discharge Orders: Discharge ED (Routine); Ordered 09/26/21 Ordered By: Kana Barraza Referrals: Wale Newton MD [Primary Care Provider] - Discharge Diet: Regular Discharge Activity: Increase activity as tolerated Patient Instructions: Dental Abscess (ED) Activity Restrictions/Additional Instructions: Follow-up with your dentist as soon as possible to have dental pain treated. Take medications as prescribed. Take [id number] Tylenol or Motrin for pain. Return to the ER or your medical provider if condition worsens. Please read and understand discharge instructions. Thank you for choosing [facility] [place] for your healthcare needs today. Please realize this is an emergency room and that we are providing you with a medical screening exam and this may not be complete and all inclusive of all the testing and or work up that you may need to determine your ailment or severity of your illness. It is very important that you follow up as instructed or that you return to the Emergency Department should you have concerns or if your condition changes or worsens in any way. Coding Level of Care Code ED Numerical Analysis Group Manager for Ariella Ziegler
[2021-09-26] MEDS: HYDROcodone-acetaminophen 5-325 mg Tablet 1 TAB PO (00:25)
[2021-09-26] MEDS: clindamycin 150 mg Capsule 300 MG PO (00:25)
[2021-09-26 00:26] VITALS: PULSE 82; RESP 18; O2SAT 96
== END 2021-09-26 00:26 | disposition home or self-care (01) ==
PROVIDERS: Emergency Provider Physician Assistant; PCP Family Medicine Adult Medicine
DX: K04.7 Periapical abscess without sinus (principal)
CPT/HCPCS: 99283

== ENCOUNTER → 2021-12-30 15:24 | Outpatient (BNVA) | payer MEDICARE, MEDICAID, SELFPAY | PROVIDERS: PCP Family Medicine Adult Medicine; Visit Provider Family Medicine Adult Medicine | DX: N32.89 Other specified disorders of bladder (principal); N39.3 Stress incontinence (female) (male) | CPT/HCPCS: 81000 ==

== ENCOUNTER → 2022-04-07 14:23 | Outpatient (BNVA) | payer MEDICARE, MEDICAID, SELFPAY | PROVIDERS: PCP Family Medicine Adult Medicine; Visit Provider Family Medicine Adult Medicine | DX: E03.9 Hypothyroidism, unspecified (principal); R74.8 Abnormal levels of other serum enzymes; K21.9 Gastro-esophageal reflux disease without esophagitis; R21 Rash and other nonspecific skin eruption; E66.9 Obesity, unspecified | CPT/HCPCS: 80053; 84443 ==

== ENCOUNTER → 2022-06-16 09:47 | Outpatient (BNVA) | payer MEDICARE, MEDICAID, SELFPAY | PROVIDERS: PCP Family Medicine Adult Medicine; Visit Provider Family Medicine Adult Medicine | DX: N32.89 Other specified disorders of bladder (principal); N39.3 Stress incontinence (female) (male) | CPT/HCPCS: 81000 ==

== ENCOUNTER → 2023-02-26 13:48 | Outpatient (BNVA) | payer MEDICARE, MEDICAID, SELFPAY | PROVIDERS: PCP Family Medicine Adult Medicine; Visit Provider Podiatrist Foot & Ankle Surgery | DX: M76.71 Peroneal tendinitis, right leg; M21.611 Bunion of right foot | CPT/HCPCS: 73630; 97760; 99213; L1902 ==

== ENCOUNTER 2023-02-26 15:32 | Outpatient (CLI) | payer MEDICARE, MEDICAID, SELFPAY | END 2023-02-26 15:33 | disposition home or self-care (01) | LOC: SPT 15:33 | PROVIDERS: PCP Family Medicine Adult Medicine; Visit Provider Podiatrist Foot & Ankle Surgery | DX: M76.71 Peroneal tendinitis, right leg (principal); M21.611 Bunion of right foot | CPT/HCPCS: 97760; 99213; L1902 ==

== ENCOUNTER → 2023-04-20 10:41 | Outpatient (BNVA) | payer MEDICARE, MEDICAID, SELFPAY | PROVIDERS: PCP Family Medicine Adult Medicine; Visit Provider Family Medicine Adult Medicine | DX: E03.9 Hypothyroidism, unspecified (principal); E66.9 Obesity, unspecified; N39.46 Mixed incontinence | CPT/HCPCS: 80048; 84443 ==

== ENCOUNTER → 2023-04-30 14:05 | Outpatient (BNVA) | payer MEDICARE, MEDICAID, SELFPAY | PROVIDERS: PCP Family Medicine Adult Medicine; Visit Provider Podiatrist Foot & Ankle Surgery | DX: M76.71 Peroneal tendinitis, right leg (principal); R26.9 Unspecified abnormalities of gait and mobility; Z91.81 History of falling; R26.89 Other abnormalities of gait and mobility; Q66.71 Congenital pes cavus, right foot; Q66.72 Congenital pes cavus, left foot | CPT/HCPCS: 99213 ==

== ENCOUNTER → 2023-08-06 14:10 | Outpatient (BNVA) | payer MEDICARE, MEDICAID, SELFPAY | PROVIDERS: PCP Family Medicine Adult Medicine; Visit Provider Podiatrist Foot & Ankle Surgery | DX: Z91.81 History of falling (principal); R26.89 Other abnormalities of gait and mobility; M76.71 Peroneal tendinitis, right leg; R26.9 Unspecified abnormalities of gait and mobility; Q66.70 Congenital pes cavus, unspecified foot; Q66.71 Congenital pes cavus, right foot | CPT/HCPCS: 99213 ==

== ENCOUNTER → 2023-09-26 10:23 | Outpatient (BNVA) | payer MEDICARE, MEDICAID, SELFPAY | PROVIDERS: PCP Family Medicine Adult Medicine; Visit Provider Podiatrist Foot & Ankle Surgery | DX: Z91.81 History of falling (principal); R26.89 Other abnormalities of gait and mobility; M76.71 Peroneal tendinitis, right leg; R26.9 Unspecified abnormalities of gait and mobility; Q66.71 Congenital pes cavus, right foot; Q66.72 Congenital pes cavus, left foot | CPT/HCPCS: 99214 ==

== ENCOUNTER 2023-10-05 06:29 | Day surgery (SDC) | payer MEDICARE, MEDICAID, SELFPAY ==
[2023-10-05] VITALS (8 sets, daily range): BP systolic 83–155; BP diastolic 46–101; PULSE 81–98; RESP 16–18; TEMP 36.2–36.7; O2SAT 92–96; BMI 32.1
[2023-10-05] MEDS: sodium chloride 0.9% 1,000 ML 30 ML IV (07:25)
--- NOTE | 2023-10-05 07:28 | W.PM.OPSUD ---
Surgery/Procedure H&P Update DATE OF PROCEDURE: October 05, 2023 DATE H&P PERFORMED: 09/26/23 H&P UPDATE INFORMATION: I have reviewed H&P completed within last 30 days, I have examined patient prior to procedure, No changes to prior documentation and H&P is in [facility] EMR on date indicated CHANGES TO PREVIOUS DOCUMENTATION: none PREOP DIAGNOSIS: Right bunion and second and third hammertoe deformities PLANNED PROCEDURE: Operation Date: 10/05/23 08:00 Proposed Procedures p Arthrodesis Foot/: Right first metatarsal phalangeal joint fusion/Ghassan Porterney(Right) - CAITLIN Pink Hammertoe Correction/ Right second hammertoe correction, Right third hammertoe correction(Right) - CAITLIN Pink Tendon Repair Foot Flexor Tendon Repair(Right) - Bassam Carvajal DPM
--- NOTE | 2023-10-05 07:56 | ANES.PREANE2 ---
Pre-Anesthetic Assessment Height/Weight: Height 1.6 m Weight 82.1 kg Temp Pulse Resp BP Pulse Ox O2 Del Method 97.8 F 98 18 155/101 96 Room Air 10/05/23 07:08 10/05/23 07:08 10/05/23 07:08 10/05/23 07:08 10/05/23 07:08 10/05/23 07:08 Preop Diagnosis: Right bunion and second and third hammertoe deformities Operation Date: 10/05/23 08:00 Proposed Procedures p Arthrodesis Foot/: Right first metatarsal phalangeal joint fusion/Mac Gurney(Right) - CAITLIN Pink Hammertoe Correction/ Right second hammertoe correction, Right third hammertoe correction(Right) - CAITLIN Pink Tendon Repair Foot Flexor Tendon Repair(Right) - Bassam Carvajal DPM Familial anesthetic complications: None Was Beta Cayden taken within 24 hours: N/A Was Clonidine taken within 24 hours: N/A Last intake: Intake Last Liquid Date 10/04/23 Last Liquid Time 18:30 Last Solid Date 10/04/23 Last Solid Time 18:30 Social No alcohol and No tobacco Exam alert, oriented x 3, clear to auscultation bilaterally and regular rate & rhythm Airway Dentition: false GI Gastroesophageal Reflux Disease Metabolic Thyroid Disease Anesthetic Plan ASA status: 3 Anesthesia: MAC Risk of > 500 ml blood loss (7ml/kg in children): No Medications/Allergies Home Medications Medication Instructions Recorded Confirmed Last Taken Type acetaminophen 500 mg capsule 500 mg PO Q6H PRN Pain (Scale 04/08/20 10/05/23 10/04/23 History Score 4-6) multivitamin 1 cap PO DAILY 04/08/20 10/05/23 10/04/23 History ascorbic acid (vitamin C) 500 mg PO DAILY 04/04/21 10/05/23 10/04/23 History cholecalciferol (vitamin D3) 25 25 mcg PO DAILY 04/07/22 10/05/23 10/04/23 History mcg (1,000 unit) capsule niacin 100 mg tablet 100 mg PO DAILY 04/07/22 10/05/23 10/04/23 History oxybutynin chloride 15 mg 15 mg PO BID PRN urinary 06/27/22 10/05/23 10/04/23 Rx tablet,extended release 24 hr incontinence 30 days #180 tabs pantoprazole 40 mg tablet,delayed 40 mg PO DAILY acid reflux #90 tabs 12/26/22 10/05/23 10/04/23 Rx release levothyroxine 100 mcg tablet 100 mcg PO DAILY thyroid 09/18/23 10/05/23 10/04/23 Rx medication #90 tabs hydrocodone 10 mg-acetaminophen 1 tab PO Q6H PRN pain 7 days #10/05/23 Unknown Rx 325 mg tablet tabs hydrocodone 10 mg-acetaminophen 1 tab PO Q6H PRN pain 7 days #10/05/23 Unknown Rx 325 mg tablet tabs Allergies Allergy/AdvReac Type Severity Reaction Status Date / Time No Known Allergies Allergy Verified 10/05/23 06:58 Current Medications Generic Name Dose Route Start Last Admin Trade Name Freq PRN Reason Stop Dose Admin Sodium Chloride 1,000 mls @ 30 mls/hr 10/05/23 07:00 10/05/23 07:25 Sodium Chloride 0.9% IV 10/06/23 06:59 30 mls/hr .Q24H GURPREET Administration PFSH Anesthesia Medical History Urge and stress incontinence Intellectual disability Bladder spasms COVID Pos COVID test 03/13/2021 Obesity GERD (gastroesophageal reflux disease) Impetigo any site Adult hypothyroidism Social History Smoking and tobacco/nicotine status: never used tobacco/nicotine Second hand smoke exposure: No Alcohol intake: never Substance/Drug Use: never Data Anesthesia Cardiac Studies: No Data to Display
[2023-10-05] MEDS: ceFAZolin 2,000 MG in sodium chloride 0.9% (plus) 50 ML 100 MG IV (08:02)
[2023-10-05] MEDS: BUPivacaine 0.5% INJ 30 mL INJECTION (08:20)
[2023-10-05] MEDS: BUPivacaine liposome 13.3 mg/mL SDV 10 mL 133 MG INFILTRATI (08:20)
--- NOTE | 2023-10-05 09:33 | P.BOP_ITS ---
Postop note date of Procedure: 09/21/23 Surgeon: Bassam Carvajal DPM Highway Traffic Control Technician(s) Wesly YOO Procedure(s) performed: Right first metatarsal phalangeal joint fusion. Right second and third hammertoe correction with flexor tendon transfer. Findings of the procedure(s): None Estimated blood loss: 2 cc Specimen(s) removed: No specimens Post-operative diagnosis: Right hallux valgus, right second and third hammertoe contracture, right Lexer tendon contracture.
--- NOTE | 2023-10-05 09:34 | PM.OP ---
Operative Report Date of procedure: October 05, 2023 Pre-op diagnosis: Contracture right foot M24.574, Bunion of great toe, right foot M21.611 and Hammertoes right foot M20.41 Post-op diagnosis: Contracture right foot M24.574, Bunion of great toe, right foot M21.611 and Hammertoes right foot M20.41 Procedure done: 1) right first metatarsal phalangeal joint fusion. CPT code 96288 2) flexor tendon transfer right foot. CPT code 13182 3) right second hammertoe correction. CPT code 78946 4) right third hammertoe correction. CPT code 20134 Implants: [place] first MTP plate with 2.7 mm and 3.5 millimeter screws 0.045 K wire x 2 3-0 Vicryl, 4-0 Vicryl, 4-0 nylon Specimens removed/disposition: No specimens Pathology: No pathology Surgeon: Bassam Carvajal DPM Round Up Ring Hand: FREDO Jarrell Estimated blood loss: 2 See intraoperative documentation IV fluids: See intraoperative documentation Urine output: See intraoperative documentation Complications: None Brief History: Insurance failed to cover orthopedic shoes or bracing. Gait analysis shows antalgic gait favoring the right foot. Her right bunion is crossing over the second toe. Will continue with wide accommodative shoes, spacing and padding as needed. Would like to discuss surgical intervention in the next few months would like to have this done. I recommended right first metatarsal for joint fusion and right second hammertoe correction can be done outpatient. I reviewed at length with the patient, the risks, potential complications, benefits, alternatives, expectations, and typical outcomes associated with the surgery. The risks and potential complications were explained in detail, including but not limited to infection, wound dehiscence or soft tissue complications, bleeding and hematoma, chronic edema, neuritis or nerve damage producing numbness or chronic pain, CRPS, failure to relieve pain or worsening pain, thick / painful / unsightly scar, limited motion / stiffness, malposition, delayed union, malunion, or nonunion, fracture, reaction to implants, anesthetic complications, venous thromboembolism, and deformity recurrence. I discussed the notion of no regrets with the patient as it pertains to complications and outcomes. The patient seemed to understand the nature of the proposed care and required convalescence. They asked appropriate questions, answered to their satisfaction. They are aware no guarantees can be made as to a satisfactory outcome and they understand there may be other possible unforeseen complications or outcomes not listed here that will be treated accordingly if they arise. There were no written or implied guarantees given to the patient. They gave informed consent to proceed. Procedure: Under mild sedation the patient was brought to the operating room and remained on the gurney in supine position. A timeout was performed. Anesthesia was then administered by the anesthesia service. Local anesthesia was injected by myself consisting of 30 cc of 0.5% Marcaine plain in a Grimaldo block fashion and 10 cc of Exparel subcutaneous in a good like fashion proximal to the operative site. Well-padded pneumatic tourniquet applied to the right ankle. Right lower extremity was then scrubbed, prepped and draped utilizing normal aseptic technique. Right foot was exanguinated with an Esmarch bandage and tourniquet inflated to 250 mmHg. Attention was directed to the right first metatarsal phalangeal joint where hallux valgus and bunion deformity were appreciated. A curvilinear incision was made medial and parallel to the extensor hallucis longus tendon to the right foot dorsally through skin with a #15 blade with dissection carried down through subcutaneous tissue to the layer of periosteum and joint capsule utilizing blunt and sharp technique. Care was taken to retract and preserve neurovascular and tendinous structures. All bleeders were ligated and cauterized as necessary. Capsular and periosteal incision was performed exposing the right first metatarsal phalangeal joint which was freed from its soft tissue and capsular attachments and prepped for arthrodesis utilizing cone and cup reamer, irrigation was performed within the incision and subchondral drilling performed with fenestrating drill bit. First metatarsal phalangeal joint was held in slight valgus, frontal plane neutral and slight dorsiflexion and fixated utilizing a dorsal locking plate with 2.7 millimeter screws distally and 3.5 millimeter screws proximally with excellent bony apposition and compression noted. Hardware noted to be excellent placement in all 3 planes with AP, oblique and lateral view of the 3 standard views performed with intraoperative C arm. The incision was irrigated with saline solution and closed in a layered fashion. Periosteal and capsular structures reapproximated with 3-0 Vicryl, subcutaneous with 4-0 Vicryl and skin with 4-0 nylon. Attention was directed to the right second and third toes where a linear longitudinal incision was made encompassing the dorsal aspect of the proximal interphalangeal joint both of the right second and right third toe with a #15 blade through skin with dissection carried down to the extensor tendon utilizing sharp and blunt technique. Care was taken to retract and preserve neurovascular and tendinous structures. All bleeders were ligated and cauterized as necessary. Extensor tendon was transected transversely at the level of the proximal interphalangeal joint of the right second and third toe. The head of the proximal phalanx and base of the intermediate phalanx were resected with a sagittal saw at the proximal phalangeal joint right second and third toe. Incision was irrigated with saline solution. Attention was then directed to the flexor tendon of the right foot flexor digitorum longus second toe which was transected at its most distal margin and split longitudinally and redirected both medial laterally and is hemisections fashion and transferred dorsally and secured dorsally at the second toe proximal phalanx dorsal diaphysis under tension correcting the sagittal plane dorsiflexion at the right second toe this was held in neutral and tendon transfer was completed with 4-0 nylon. Incisions were then irrigated send solution. Hammertoe fixation and rectus position of the right second third toe was performed with 0.045 K wires with distal end bent at 90 degrees, trimmed and covered with Armando balls. AP, oblique and lateral view with intraoperative C arm confirmed that the fixation did not cross the metatarsal phalangeal joints. The incisions were then irrigated send solution and closed in a layered fashion. Extensor tendon at the dorsal aspect of the right second third toe were reapproximated with 4-0 Vicryl, subcutaneous tissue reapproximated with 4-0 Vicryl and skin with 4-0 nylon. All incisions were then dressed with Adaptic, sterile 4 x 4's, Kerlix and Chris wrap followed by application of a cam boot to the right lower extremity. Tourniquet was deflated and a prompt hyperemic response was noted to the distal digits of the right foot. Patient tolerated the procedure and anesthesia well and was transferred to the PACU with vital signs stable and vascular status intact. Following a period of postoperative monitoring she will be discharged home was given at home care instructions, scheduled follow-up and my cell phone number to contact with any postoperative questions or concerns.
--- NOTE | 2023-10-05 09:36 | XR_ITS ---
WS: [id number] Exam: XR foot RT min 3V* [id number] Date/Time of Exam: 10/05/2023 9:37 AM Reason For Exam: post op Comparison 02/26/2023. There is dorsal plate and screw fixation of the first MP joint. Orthopedic wires course of the long a xis of the second and third toes. No other postoperative changes are identified. Signs of previous fi rst metatarsal osteotomy. IMPRESSION: 1. Postoperative changes at the the first MP joint as well as the second and third toes as noted abov e. No complications are identified.
--- NOTE | 2023-10-05 10:25 | ANE.PACU2 ---
Inpatient post-anesthesia follow up: Airway intact: Yes Vital signs: Temperature 98.1 F Pulse Rate 81 Respiratory Rate 16 Blood Pressure 106/80 Pulse Oximetry 94 Oxygen Delivery Me thod Room Air Oxygen Flow Rate 10 Fraction of Inspir ed Oxygen Hydration adequate: Yes Nausea and vomiting: No Pain level: 1 Mental status: Baseline
== END 2023-10-05 10:28 | disposition home or self-care (01) ==
PROVIDERS: PCP Family Medicine Adult Medicine; Visit Provider Podiatrist Foot & Ankle Surgery
PROC: (CPT 28740; principal; 2023-10-05 08:00)
PROC: (CPT 28285; 2023-10-05 08:00)
PROC: (CPT 27691; 2023-10-05 08:00)
DX: M24.574 Contracture, right foot (principal); M21.611 Bunion of right foot; M20.41 Other hammer toe(s) (acquired), right foot; K21.9 Gastro-esophageal reflux disease without esophagitis; E66.9 Obesity, unspecified; Z68.32 Body mass index [BMI] 32.0-32.9, adult; E03.9 Hypothyroidism, unspecified; Z91.81 History of falling; R26.89 Other abnormalities of gait and mobility; M21.6X1 Other acquired deformities of right foot
CPT/HCPCS: 27691; 28285 ×2; 28750; 73630; C1713; C9290; J0690; J1100; J1885; J2704; J3010; J3490; J7030

== ENCOUNTER → 2023-10-18 13:33 | Outpatient (BNVA) | payer MEDICARE, MEDICAID, SELFPAY | PROVIDERS: PCP Family Medicine Adult Medicine; Visit Provider Podiatrist Foot & Ankle Surgery | DX: Z98.890 Other specified postprocedural states (principal); Z98.1 Arthrodesis status; Z87.39 Personal history of other diseases of the musculoskeletal system and connective tissue | CPT/HCPCS: 73630; 99024 ==

== ENCOUNTER → 2023-11-01 14:09 | Outpatient (BNVA) | payer MEDICARE, MEDICAID, SELFPAY | PROVIDERS: PCP Family Medicine Adult Medicine; Visit Provider Podiatrist Foot & Ankle Surgery | DX: Z98.890 Other specified postprocedural states (principal); Z98.1 Arthrodesis status; Z87.39 Personal history of other diseases of the musculoskeletal system and connective tissue | CPT/HCPCS: 73630; 99024 ==

== ENCOUNTER → 2023-11-15 13:04 | Outpatient (BNVA) | payer MEDICARE, MEDICAID, SELFPAY | PROVIDERS: PCP Family Medicine Adult Medicine; Visit Provider Podiatrist Foot & Ankle Surgery | DX: Z98.890 Other specified postprocedural states (principal) | CPT/HCPCS: 73630; 99024 ==

== ENCOUNTER → 2023-11-29 14:05 | Outpatient (BNVA) | payer MEDICARE, MEDICAID, SELFPAY | PROVIDERS: PCP Family Medicine Adult Medicine; Visit Provider Podiatrist Foot & Ankle Surgery | DX: L60.3 Nail dystrophy; M20.41 Other hammer toe(s) (acquired), right foot | CPT/HCPCS: 11750; 28010 ==

== ENCOUNTER → 2023-12-13 13:54 | Outpatient (BNVA) | payer MEDICARE, MEDICAID, SELFPAY | PROVIDERS: Visit Provider Podiatrist Foot & Ankle Surgery | DX: Z98.890 Other specified postprocedural states (principal) | CPT/HCPCS: 73630; 99213 ==

== ENCOUNTER 2023-12-18 06:00 | Outpatient (RCR) | payer MEDICARE, MEDICAID, SELFPAY | END 2024-01-06 23:59 | disposition home or self-care (01) | LOC: SPT 06:00 | PROVIDERS: Visit Provider Podiatrist Foot & Ankle Surgery | DX: Z98.890 Other specified postprocedural states (principal) | CPT/HCPCS: 97110; 97161; 97530 ==

== ENCOUNTER → 2024-09-24 15:22 | Outpatient (BNVA) | payer MEDICARE, MEDICAID, SELFPAY | PROVIDERS: Visit Provider Family Medicine | DX: E03.9 Hypothyroidism, unspecified (principal); M21.6X1 Other acquired deformities of right foot | CPT/HCPCS: 73610; 80053; 80061; 84439; 84443; 85025 ==

== ENCOUNTER 2024-09-29 10:24 | Outpatient (CLI) | payer MEDICARE, MEDICAID, SELFPAY ==
--- NOTE | 2024-09-29 10:20 | MM_ITS ---
WS: [id number] BILATERAL 3D TOMOSYNTHESIS DIGITAL SCREENING MAMMOGRAPHY WITH CAD CLINICAL INFORMATION: screening HISTORY: Screening mammogram. No current complaints. COMPARISON: 2021 TECHNIQUE: Bilateral CC and MLO views. FINDINGS: Scattered fibroglandular densities bilaterally. Tiny cluster calcifications RIGHT breast. These were not definitely seen previously. Recommend spot magnification views in further evaluation. Unremarkable LEFT breast. MM/MM scr BI tomosynthesis [id number] IMPRESSION: DENSITY: There are scattered areas of fibroglandular density. BI-RADS: 0 - Incomplete: Need additional imaging evaluation. FOLLOW UP: Need Additional Imaging Recommend spot magnification views of the RIGHT breast calcifications
== END 2024-09-29 10:25 | disposition home or self-care (01) ==
LOC: RAD 10:26
PROVIDERS: PCP Family Medicine; Visit Provider Family Medicine
DX: Z12.31 Encounter for screening mammogram for malignant neoplasm of breast (principal); R92.323 Mammographic fibroglandular density, bilateral breasts; R92.1 Mammographic calcification found on diagnostic imaging of breast
CPT/HCPCS: 77063; 77067

== ENCOUNTER 2024-10-06 14:31 | Outpatient (CLI) | payer MEDICARE, MEDICAID, SELFPAY ==
--- NOTE | 2024-10-06 14:30 | MM_ITS ---
WS: [id number] RIGHT 3D TOMOSYNTHESIS DIGITAL MAMMOGRAPHY WITH CAD CLINICAL INFORMATION: mass HISTORY: RIGHT breast calcifications COMPARISON: 2024 TECHNIQUE: 2 views of the right breast were obtained. FINDINGS: Scattered fibroglandular densities of the right breast. Spot magnification views of the RIGHT breast calcifications. Tiny punctate loosely clustered calcifications. These are probably benign and recommend 6-month follow-up to confirm stability MM/MM diag RT tomosynthesis [id number] IMPRESSION: DENSITY: There are scattered areas of fibroglandular density. BI-RADS: 3 - Probably Benign. FOLLOW UP: 6 Month Follow-up Recommend 6-month follow-up with spot magnification views RIGHT breast
== END 2024-10-06 14:32 | disposition home or self-care (01) ==
PROVIDERS: PCP Family Medicine; Visit Provider Family Medicine
DX: N63.10 Unspecified lump in the right breast, unspecified quadrant (principal); R92.323 Mammographic fibroglandular density, bilateral breasts; R92.1 Mammographic calcification found on diagnostic imaging of breast
CPT/HCPCS: 77061; G0279

== ENCOUNTER 2024-11-06 11:48 | Emergency (ER) | payer MEDICARE, MEDICAID, SELFPAY ==
[2024-11-06 11:50] VITALS: BP 156/78; PULSE 103; RESP 18; TEMP 37; O2SAT 98
--- NOTE | 2024-11-06 12:53 | CTR_ITS ---
PROCEDURE INFORMATION: Exam: CT Abdomen And Pelvis With Contrast Exam date and time: 11/06/2024 1:31 PM Age: 54 years old Clinical indication: Abdominal pain; Generalized; PT does state her abdomen; Additional info: Abd pain TECHNIQUE: Imaging protocol: Computed tomography of the abdomen and pelvis with contrast. Radiation optimization: All CT scans at this facility use at least one of these dose optimization techniques: automated exposure control; mA and/or kV adjustment per patient size (includes targeted exams where dose is matched to clinical indication); or iterative reconstruction. Contrast material: OMNI 350; Contrast volume: 100 ml; Contrast route: INTRAVENOUS (IV); COMPARISON: CT abdomen pelvis w con* [id number] 03/21/2021 2:26 AM RADIATION DOSE METRICS: Total DLP (mGy-cm): 1131.84 FINDINGS: Limitations: Study is technically limited due to motion artifact. Lungs: Lung bases are clear. Liver: Mild fatty infiltration throughout the liver. No masses or enlargement detected. Gallbladder and biliary ducts: Normal. No calcified stones. No ductal dilation. Pancreas: Unremarkable. Main pancreatic duct is not significantly dilated. Spleen: Spleen is at least mildly enlarged measuring 15 cm unchanged.. Adrenal glands: Normal. No mass. Kidneys and ureters: Kidneys are unremarkable. No calculi or hydronephrosis detected. Stomach and bowel: There are multiple diverticuli sigmoid colon without evidence of diverticulitis. Appendix: No evidence of appendicitis. Intraperitoneal space: Unremarkable. No free air. No significant fluid collection. Vasculature: Unremarkable. No abdominal aortic aneurysm. Lymph nodes: Unremarkable. No enlarged lymph nodes. Urinary bladder: Unremarkable as visualized. Reproductive: There is expansion of the endometrial canal with multiple nodular densities projecting within the endometrial cavity concerning for endometrial polyps or carcinoma that needs further evaluation Bones/joints: Unremarkable. No acute fracture. Soft tissues: Unremarkable. CT/CT abdomen pelvis w con* [id number] IMPRESSION: 1. No acute findings within the abdomen or pelvis. 2. Sigmoid diverticulosis. No evidence of acute diverticulitis. 3. Mild-moderate splenomegaly unchanged. 4. Abnormality involving the endometrial cavity concerning for endometrial polyps or endometrial carcinoma for which follow-up nonemergent pelvic ultrasound recommended for further assessment.
--- NOTE | 2024-11-06 12:53 | CT_ITS ---
WS: [id number] CT scan of the head, 11/06/2024 Clinical Data: ams Comparison: None. DLP: 1005.[address] scans at [facility] use at least one of these dose optimization techniques: automated exposure control; mA and/or kV adjustment per patient size (includes targeted exams where dose is matched to clinical indication); or iterative reconstruction. Findings: The ventricular system is modestly dilated without shift. No recent infarct or hemorrhage is seen. There are no abnormal intracerebral masses. The cerebellum and brainstem are not remarkable. Bony windows of the skull and skull base show no fractures or erosions. The mastoid air cells, internal auditory canals, sella turcica, intraorbital contents, and paranasal sinuses are unremarkable. CT/CT head wo con* [id number] Impression: Negative CT scan of the head
--- NOTE | 2024-11-06 12:55 | ED_ITS ---
HPI - General Adult 2 General: Chief complaint: General Medical Stated complaint: AMS, unsusal activites Time Seen by Provider: 11/06/24 12:11 Source: family Mode of arrival: ambulatory Limitations: other (Delayed cognitive development) History of Present Illness: This patient was transported to the emergency department by her sister and [id number] with whom she lives. 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 They are concerned because of her bizarre behavior today. They state that she awoke seemingly normal and as the morning progressed she started fidgeting and doing other bizarre behaviors holding her abdomen and then holding her head and acting very anxious. They have unable to pinpoint what actually is not bothering her but states that she has never acted like this before. She takes thyroid replacement but no other prescribed medications. They state that she has not had any symptoms of recent illness such as fevers chills nausea vomiting diarrhea. Sister states that she ate a small amount of breakfast today. She has not had any falls or other inciting events including emotional events that they are aware. The family states that she had a normal day yesterday went to bed at normal time and awoke at her normal time. They have not noticed any focal weakness etc. She is limited expression of her concerns. She has had orthopedic surgeries on her foot but no intra-abdominal surgeries etc. Related Data Home Medications ?Medication ?Instructions ?Recorded ?Confirmed acetaminophen 500 mg capsule 500 mg PO Q6H PRN Pain (S shahzad 04/08/20 11/06/24 Score 4-6) aspirin 81 mg tablet,delayed 81 mg PO DAILY PRN Pain 0 11/06/24 11/06/24 release magnesium 250 mg tablet 250 mg PO DAILY 11/06/2408/02 multivitamin 1 tab PO QAM 11/06/24 omeprazole 40 mg capsule,delayed 40 mg PO DAILY PRN Ac id Reflux 11/06/24 11/06/24 release Previous Rx's ?Medication ?Instructions ?Recorded levothyroxine 125 mcg tablet 125 mcg PO DAILY thyroid 09/25/24 medication #90 tabs AFO right ankle #1 ea 10/06/24 Allergies Allergy/AdvReac Type Severity Reaction Status Date / Time No Known Allergies Allergy Verified 10/06/24 10:06 Review of Systems 2 General: Reports: 10 or more systems reviewed and unremarkable except in HPI and below PFSH ED 2 PFSH: Medical History Urge and stress incontinence Intellectual disability Bladder spasms COVID Pos COVID test 03/13/2021 Obesity GERD (gastroesophageal reflux disease) Impetigo any site Adult hypothyroidism Social History Smoking and tobacco/nicotine status: never used tobacco/nicotine Second hand smoke exposure: No Alcohol intake: never Substance/Drug Use: never Physical Exam 2 Narrative: EXAM NARRATIVE: She is alert and makes good eye contact and cooperative but has limited vocal expression of her symptoms. She does answer yes and no and will also identify her sister and [id number]. She seems somewhat anxious at times but otherwise is calm. Const: COMMON NORMALS: alert GENERAL APPEARANCE: cooperative, well kempt and anxious NUTRITIONAL APPEARANCE: overweight HENMT: COMMON NORMALS: atraumatic, Normal nasal mucous membranes and turbinates present, moist oral mucous membranes and oropharynx normal HEAD & SCALP: atraumatic FACE & SINUS: face symmetric NOSE: Normal nasal mucous membranes and turbinates present Eye: COMMON NORMALS: Equal, round and reactive pupils present, EOMs intact bilaterally, conjunctivae normal and no scleral icterus CONJUNCTIVA: Yes conjunctivae normal PUPIL: Yes Equal, round and reactive pupils present Neck/C-Spine: COMMON NORMALS: full ROM, no lymphadenopathy, no JVD and Thyroid normal THYROID: Thyroid normal Chest: COMMONS NORMALS: normal inspection of the chest and normal palpation of entire chest wall Resp: COMMON NORMALS: normal respiratory effort, No retractions, No use of accessory muscles and clear to auscultation bilaterally AUSCULTATION: clear to auscultation bilaterally Cardio: COMMON NORMALS: no JVD, regular rate, regular rhythm, No murmurs present (Cardio) and Peripheral pulses 2+ throughout RATE: regular rate R HYTHM: regular rhythm PERIPHERAL PULSES: Peripheral pulses 2+ throughout GI: COMMON NORMALS: Soft to palpation PALPATION: Yes Soft to palpation O THER: Abdominal examination reveals some mild subjective tenderness in the upper mid abdomen. No peritoneal signs noted at this time to include rebound or guarding. Back/Pelvis: COMMON NORMALS: thoracic and lumbar spine normal to inspection, no thoracic nor lumbar tenderness, thoraco-lumbar ROM normal and straight leg raise negative bilaterally Extremity: COMMON NORMALS: normal to inspection, full ROM, capillary refill normal, no calf tenderness and no pedal edema Neuro: COMMON NORMALS: moves all extremities, no focal motor deficits and no sensory deficits noted SENSORIUM/ORIENTATION: Yes alert Psych: COMMON NORMALS: cooperative APPEARANCE: Yes well kempt Skin: COMMON NORMALS: no rashes or lesions noted, no wounds, turgor normal and no jaundice GENERAL SKIN EXAM: no rashes or lesions noted and turgor normal Course 2 Reevaluation(s): Reevaluation #1: Patient reevaluated. She is back at her baseline and and very interactive and has been acting normal per her family. Workup is totally unremarkable for any significant or acute pathology. She does have a uterus that needs a pelvic ultrasound but this can be done not emergently and I will plan on scheduling that through outpatient imaging with follow-up with Dr. Leung her primary care doctor. This was related to both the patient and her family. She does have a history of a aphasia and that may or may not be an issue at play here as she apparently does swallow a lot of air when she is eating and she had that upper abdominal complaints and that may have caused her angst and anxiety which contributed to the way she has been acting but at this time as I have relayed to the family she does not have any evidence to suggest an emergency medical condition and she is back at her baseline. We discussed return precautions in detail and they voiced understanding and were appreciative of care. Time: 15:42 Vital Signs: Vital signs: Vital Signs Temperature 98.6 F 11/06/24 11:50 Pulse Rate 89 11/06/24 13:25 Respiratory Rate 25 H 11/06/24 13:25 Blood Pressure 160/90 11/06/24 13:30 Pulse Oximetry 99 11/06/24 13:25 Oxygen Delivery Me thod Room Air 11/06/24 13:18 MDM - General Adult Medical Decision Making Patient presented as noted in the HPI. Although the length of the family is very forthcoming it is very difficult to discern exactly what is the issue with this patient at this time. She has limited expressive abilities. Does not appear to be any focal findings today. It is not clear whether she has any intra-abdominal process or other ongoing issue that is contributing to her anxiety. I discussed the need to have a very broad differential and extensive workup with the family and they agreed. Patient's workup included CTA head, CT abdomen pelvis ancillary laboratories etc. He was also given a milligram of Ativan in anticipation of needing to lie still for her imaging studies. As her emergency department evaluation progressed she resolved any of the symptoms that she had had previously and was back at her baseline. All her studies were very reassuring without any evidence to suggest intra-abdominal surgical condition, stroke, intracranial hemorrhage etc. No evidence of infection noted on any of the studies as well. She did have findings in her uterus that a outpatient ultrasound will be scheduled for further follow-up but are not acute at this time. As noted she has a history of paraphasia and this may be a contributing factor to her current presentation. She is currently clinically stable and family is very comfortable taking her home at this time and with follow-up with her primary care doctor or return to the emergency department as needed with new or persistent or worsening symptoms. Lab Data I reviewed the patient's lab results. 11/06/24 12:59 11/06/24 12:59 Radiology Impressions Abdomen/Pelvis CT 11/06/24 12:53 IMPRESSION: 1. No acute findings within the abdomen or pelvis. 2. Sigmoid diverticulosis. No evidence of acute diverticulitis. 3. Mild-moderate splenomegaly unchanged. 4. Abnormality involving the endometrial cavity concerning for endometrial polyps or endometrial carcinoma for which follow-up nonemergent pelvic ultrasound recommended for further assessment. Head CT 11/06/24 12:53 Impression: Negative CT scan of the head Laboratory Results WBC 11.10 10^3/uL (3.29-11.43) 11/06/24 12:59 RBC 5.02 10^6/uL (3.85-5.65) 11/06/24 12:59 Hgb 15.50 g/dL (11.27-16.99) 11/06/24 12:59 Hct 44.1 % (36-47) 11/06/24 12:59 MCV 87.8 fl (85-98) 11/06/24 12:59 MCH 30.9 pg (27-33) 11/06/24 12:59 MCHC 35.1 g/dL (30-55) 11/06/24 12:59 RDW 12.1 % (12.1-15.1) 11/06/24 12:59 Plt Count 200 10^3/cmm (157-399) 11/06/24 12:59 MPV 12.2 fL (7.4-10.4) H 11/06/24 12:59 Neut % (Auto) 69.8 % 11/06/24 12:59 Lymph % (Auto) 22.5 % 11/06/24 12:59 [place] % (Auto) 6.9 % 11/06/24 12:59 Eos % (Auto) 0.0 % 11/06/24 12:59 Baso % (Auto) 0.3 % 11/06/24 12:59 Neut # (Auto) 7.75 10^3/uL (1.8-7.7) H 11/06/24 12:59 Lymph # (Auto) 2.5 10^3/uL (0.8-4.8) 11/06/24 12:59 [place] # (Auto) 0.8 10^3/uL (0.2-0.9) 11/06/24 12:59 Eos # (Auto) 0.0 10^3/uL (0.0-0.8) 11/06/24 12:59 Baso # (Auto) 0.0 10^3/uL (0.0-0.1) 11/06/24 12:59 Nucleated RBC % (auto) 0 % 11/06/24 12:59 Nucleated RBCs # 0.0 /100WBC 11/06/24 12:59 Sodium 139 mmol/L (136-145) 11/06/24 12:59 Potassium 3.5 mmol/L (3.5-5.1) 11/06/24 12:59 Chloride 104 mmol/L (98-107) 11/06/24 12:59 Carbon Dioxide 19 mmol/L (22-29) L 11/06/24 12:59 Anion Gap 19.5 (5-19) H 11/06/24 12:59 BUN 16 mg/dL (6-20) 11/06/24 12:59 Creatinine 0.7 mg/dL (0.5-0.9) 11/06/24 12:59 GFR Calculation 86.6 mL/min (90-130) L 11/06/24 12:59 Glucose 160 mg/dL (65-115) H 11/06/24 12:59 Calculated Osmolality 293 mOsm/kg (285-295) 11/06/24 12:59 Calcium 10.2 mg/dL (8.5-10.5) 11/06/24 12:59 Total Bilirubin 0.8 mg/dL (0.15-1.2) 11/06/24 12:59 AST 60 U/L (0-32) H 11/06/24 12:59 ALT 95 U/L (0-33) H 11/06/24 12:59 Alkaline Phosphatase 94 U/L (35-105) 11/06/24 12:59 Total Protein 9.0 g/dL (6.6-8.7) H 11/06/24 12:59 Albumin 4.8 g/dL (3.5-5.2) 11/06/24 12:59 Globulin 4.2 g/dL (1.3-4.6) 11/06/24 12:59 TSH 11.59 uIU/mL (0.27-4.20) H 11/06/24 12:59 Urine Color Yellow (Yellow) 11/06/24 13:04 Urine Appearance Clear (CLEAR) 11/06/24 13:04 Urine pH 6.5 (5-7) 11/06/24 13:04 Ur Specific [place] 1.005 (1.005-1.030) 11/06/24 13:04 Urine Protein Negative (Negative) 11/06/24 13:04 Urine Glucose (UA) Negative (Normal) 11/06/24 13:04 Urine Ketones Negative (Negative) 11/06/24 13:04 Urine Blood Negative (Negative) 11/06/24 13:04 Urine Nitrate Negative (Negative) 11/06/24 13:04 Urine Bilirubin Negative (Negative) 11/06/24 13:04 Urine Urobilinogen 0.2 mg/dL (Negative) 11/06/24 13:04 Ur Leukocyte Esterase 2+ (Negative) A 11/06/24 13:04 Urine RBC 0-2 /hpf (0-2) 11/06/24 13:04 Urine WBC 6-10 /hpf (0-5) 11/06/24 13:04 Ur Squamous Epith Cells 0-5 /hpf (0-5) 11/06/24 13:04 Amorphous Sediment Not Reportable 11/06/24 13:04 Urine Bacteria None seen /hpf (NONE) 11/06/24 13:04 Hyaline Casts 0-4 /lpf H 11/06/24 13:04 All radiology interpretation(s) finalized by discharge Discharge Plan Discharge Patient Disposition: Home Clinical Impression: Anxiety, Aerophagia Condition: Stable Prescriptions: No Action acetaminophen 500 mg capsule 500 mg PO Q6H PRN (Reason: Pain (Scale Score 4-6)) levothyroxine 125 mcg tablet 125 mcg PO DAILY Qty: 90 1RF (DME) AFO right ankle See Rx Instructions .Route .MEDSUPPLY Qty: 1 0RF Rx Instructions: As directed by [facility] multivitamin Tablet 1 tab PO QAM aspirin [Aspir-81] 81 mg Tablet,Delayed Release (Dr/Ec) 81 mg PO DAILY PRN (Reason: Pain) magnesium 250 mg Tablet 250 mg PO DAILY omeprazole 40 mg capsule,delayed release(DR/EC) 40 mg PO DAILY PRN (Reason: Acid Reflux) Discharge Orders: Discharge ED (Routine); Ordered 11/06/24 Ordered By: Flaquito Arana Referrals: Gonzalez Moreno MD [Primary Care Provider, [facility]] - 2 weeks Referral Note: needs non urgent pelvic US-consult to case management for scheduling Discharge Diet: Usual diet Discharge Activity: Resume usual activity Patient Instructions: Opioid Safety, Pain Management Activity Restrictions/Additional Instructions: As we discussed while you are in the emergency department we did not find any evidence today of a urgent serious condition. As we further discussed she has some findings on her uterus and that is recommended a pelvic ultrasound be obtained and we have placed a consultation with our case management who should make those arrangements and you should be notified. We have also sent a note to Dr. Lacyr letting him know of the scheduling. If you develop any new or other concerning or persistent symptoms you are welcome to return to the emergency department at any time otherwise follow-up with Dr. Lacy in the next 2 weeks. Print Language: Andorran Coding Level of Care Code ED [employer] Making Machine Operator for Ariella Ziegler
[2024-11-06 13:06] LABS: Basophils % 0.3 %; Hematocrit 44.1 % (36-47); Lymphocytes # 2.5 10^3/uL (0.8-4.8); Lymphocytes % 22.5 %; Mean Corpuscular HGB Conc 35.1 g/dL (30-55); Mean Corpuscular Hemoglobin 30.9 pg (27-33); Mean Corpuscular Volume 87.8 fl (85-98); Mean Platelet Volume 12.2 fL (7.4-10.4); Monocytes # 0.8 10^3/uL (0.2-0.9); Monocytes % 6.9 %; Neutrophils # 7.75 10^3/uL (1.8-7.7); Neutrophils % 69.8 %; Nucleated Red Blood Cells % 0 %; Platelet Count 200 10^3/cmm (157-399); Red Blood Count 5.02 10^6/uL (3.85-5.65); Red Cell Distribution Width 12.1 % (12.1-15.1)
[2024-11-06] MEDS: LORazepam 1 MG/0.5 ML injection IVP (13:11)
[2024-11-06 13:12] LABS: Bilirubin Urine Negative (Negative); Blood Urine Negative (Negative); Glucose Urine UA Negative (Normal); Ketones Urine Negative (Negative); Leukocyte Esterase Urine 2+ (Negative); Nitrate Urine Negative (Negative); Protein Urine Negative (Negative); Specific Gravity, Urine 1.005 (1.005-1.030); Urine Appearance Clear (CLEAR); Urine Color Yellow (Yellow); Urobilinogen Urine 0.2 mg/dL (Negative); pH Urine 6.5 (5-7)
[2024-11-06 13:14] LABS: Add Urine Microscopic? YES; Bacteria Urine None Seen /hpf; Hyaline Casts Urine 0-4 /lpf; RBC Urine 0-2 /hpf (0-2); Squamous Epithelial Cell Urine 0-5 /hpf (0-5)
[2024-11-06 13:17] LABS: Add Urine Culture? No
[2024-11-06 13:18] VITALS: BP 160/90; PULSE 99; O2SAT 99
[2024-11-06 13:20] VITALS: BP 160/90; PULSE 99; RESP 19; O2SAT 100
[2024-11-06 13:25] VITALS: BP 160/90; PULSE 89; RESP 25; O2SAT 99
[2024-11-06 13:30] VITALS: BP 160/90
[2024-11-06 13:34] LABS: Alanine Aminotransferase 95 U/L (0-33); Albumin Level 4.8 g/dL (3.5-5.2); Alkaline Phosphatase 94 U/L (35-105); Anion Gap 19.5 (5-19); Aspartate Amino Transferase 60 U/L (0-32); Blood Urea Nitrogen 16 mg/dL (6-20); Calcium 10.2 mg/dL (8.5-10.5); Carbon Dioxide 19 mmol/L (22-29); Chloride 104 mmol/L (98-107); Creatinine Clr Calc Pharmacy 88.2362; Globulin 4.2 g/dL (1.3-4.6); Glomerular Filtration Rate 86.6 mL/min (90-130); Glucose 160 mg/dL (65-115); Osmolality Calculated 293 mOsm/kg (285-295); Potassium 3.5 mmol/L (3.5-5.1); Sodium 139 mmol/L (136-145); Thyroid Stimulating Hormone 11.59 uIU/mL (0.27-4.20); Total Bilirubin 0.8 mg/dL (0.15-1.2)
[2024-11-06] MEDS: iohexol 350 mg/mL 500 mL Btl (per mL) IV (13:35)
--- NOTE | 2024-11-06 13:58 | PC.PHAR ---
Pt is high function and has guardians who live with her 24 hours a day.
[2024-11-06 15:57] VITALS: BP 115/65; PULSE 92; O2SAT 98
--- NOTE | 2024-11-07 07:57 | DCPLANNER ---
faxed outpatient us order to scheduling
== END 2024-11-06 15:58 | disposition home or self-care (01) ==
PROVIDERS: Emergency Provider Emergency Medicine; PCP Family Medicine
DX: F41.9 Anxiety disorder, unspecified (principal); F45.8 Other somatoform disorders; Z79.82 Long term (current) use of aspirin
CPT/HCPCS: 36415; 70450; 74177; 80053; 81001; 84443; 85025; 96374; 99285; J2060

== ENCOUNTER 2024-11-09 13:24 | Emergency (ER) | payer MEDICARE, MEDICAID, SELFPAY ==
--- NOTE | 2024-11-09 13:34 | ED.C_ITS ---
HPI - Psych 2 General: Chief Complaint: Psychiatric Symptoms Stated Complaint: mhe Time Seen by Provider: 11/09/24 13:31 History of Present Illness: 54-year-old female presents emergency ro om with her sister. Patient has intellectual disability she has been very anxious lately she was seen here few days ago when evaluated. She had scans done that were unremarkable. She returns todayWith similar complaints seems very anxious she is not able to vocalize anything with her disability she has some limitations but is usually be able to manage her own ADLs and coherently converse at least at a superficial level with those around her when she has not been doing now. Related Data Home Medications ?Medication ?Instructions ?Recorded ?Confirmed acetaminophen 500 mg capsule 500 mg PO Q6H PRN Pain (S shahzad 04/08/20 11/10/24 Score 4-6) aspirin 81 mg tablet,delayed 81 mg PO DAILY PRN Pain 0 11/06/24 11/10/24 release magnesium 250 mg tablet 250 mg PO DAILY 11/06/2411/30 multivitamin 1 tab PO QAM 11/06/24 omeprazole 40 mg capsule,delayed 40 mg PO DAILY PRN Ac id Reflux 11/06/24 11/10/24 release Previous Rx's ?Medication ?Instructions ?Recorded levothyroxine 137 mcg tablet 137 mcg PO DAILY #60 tabs 11/10/24 (Synthroid) lorazepam 1 mg tablet 1 mg PO BID anxiety #30 tabs 11/10/24 quetiapine 50 mg tablet (Seroquel) 50 mg PO .qhs #30 t abs 11/10/24 Allergies Allergy/AdvReac Type Severity Reaction Status Date / Time No Known Allergies Allergy Verified 11/10/24 14:18 Review of Systems 2 Const: Denies: fever(s) or chills Card: Denies: chest pain Resp: Denies: dyspnea GI: Denies: abdominal pain : Denies: dysuria, urinary frequency or urinary urgency Musc: Denies: neck pain or back pain Skin/Breast: Denies: rash PFSH ED 2 PFSH: Medical History Urge and stress incontinence Intellectual disability Bladder spasms COVID Pos COVID test 03/13/2021 Obesity GERD (gastroesophageal reflux disease) Impetigo any site Adult hypothyroidism Social History Smoking and tobacco/nicotine status: never used tobacco/nicotine Second hand smoke exposure: No Alcohol intake: never Substance/Drug Use: never Physical Exam 2 Const: GENERAL APPEARANCE: cooperative ORIENTATION/CONSCIOUSNESS: Yes awake HENMT: COMMON NORMALS: normocephalic, atraumatic and hearing grossly normal bilaterally HEAD & SCALP: normocephalic and atraumatic Resp: COMMON NORMALS: normal respiratory effort, No retractions, No use of accessory muscles and clear to auscultation bilaterally AUSCULTATION: clear to auscultation bilaterally Cardio: COMMON NORMALS: regular rate, regular rhythm and No murmurs present (Cardio) RATE: regular rate RHYTHM: regular rhythm GI: COMMON NORMALS: Soft to palpation and No hepatosplenomegaly present A USCULTATION: Yes normoactive bowel sounds PALPATION: Yes Soft to palpation, No Tenderness to palpation present (GI), No Guarding due to palpation present (GI) and Yes No hepatosplenomegaly present Extremity: COMMON NORMALS: normal to inspection, capillary refill normal, no clubbing, cyanosis or edema, no calf tenderness and no pedal edema Skin: COMMON NORMALS: no rashes or lesions noted GENERAL SKIN EXAM: no rashes or lesions noted Course 2 Vital Signs: Vital signs: Vital Signs Temperature 97.9 F 11/09/24 13:37 Pulse Rate 93 11/09/24 16:00 Respiratory Rate 16 11/09/24 15:44 Blood Pressure 127/80 11/09/24 15:44 Pulse Oximetry 96 11/09/24 16:00 Oxygen Delivery Me thod Room Air 11/09/24 16:00 [facility] - Psych Medical Decision Making Observe the patient for long period of time she did react well to Ativan. We had considered admitting and I discussed with psychiatry on-call psychiatry advised it may be an option to admit to adjust long-term medications. She is not expressing or acting out any suicidal ideology just very anxious to the point of being unable to perform her usual ADLs. This resolves almost completely after she was given Ativan it had been at her previous ER visit as well. We do not have any inpatient psych beds available. Discussed with her guardian they would rather at this point go home. I discussed with I think it is very important if they do this to establish with [facility]. She was given Ativan to use as needed at the time of discharge per recommendation of psychiatry. She should follow-up with [facility] to consider long-term treatments for anxiety. Lab Data 11/09/24 13:47 11/09/24 13:47 Laboratory Results WBC 9.75 10^3/uL (3.29-11.43) 11/09/24 13:47 RBC 5.05 10^6/uL (3.85-5.65) 11/09/24 13:47 Hgb 15.70 g/dL (11.27-16.99) 11/09/24 13:47 Hct 44.6 % (36-47) 11/09/24 13:47 MCV 88.3 fl (85-98) 11/09/24 13:47 MCH 31.1 pg (27-33) 11/09/24 13:47 MCHC 35.2 g/dL (30-55) 11/09/24 13:47 RDW 12.1 % (12.1-15.1) 11/09/24 13:47 Plt Count 213 10^3/cmm (157-399) 11/09/24 13:47 MPV 12.0 fL (7.4-10.4) H 11/09/24 13:47 Neut % (Auto) 70.0 % 11/09/24 13:47 Lymph % (Auto) 20.5 % 11/09/24 13:47 [place] % (Auto) 8.6 % 11/09/24 13:47 Eos % (Auto) 0.2 % 11/09/24 13:47 Baso % (Auto) 0.4 % 11/09/24 13:47 Neut # (Auto) 6.82 10^3/uL (1.8-7.7) 11/09/24 13:47 Lymph # (Auto) 2.0 10^3/uL (0.8-4.8) 11/09/24 13:47 [place] # (Auto) 0.8 10^3/uL (0.2-0.9) 11/09/24 13:47 Eos # (Auto) 0.0 10^3/uL (0.0-0.8) 11/09/24 13:47 Baso # (Auto) 0.0 10^3/uL (0.0-0.1) 11/09/24 13:47 Nucleated RBC % (auto) 0 % 11/09/24 13:47 Nucleated RBCs # 0.0 /100WBC 11/09/24 13:47 Sodium 142 mmol/L (136-145) 11/09/24 13:47 Potassium 4.1 mmol/L (3.5-5.1) 11/09/24 13:47 Chloride 110 mmol/L (98-107) H 11/09/24 13:47 Carbon Dioxide 14 mmol/L (22-29) L 11/09/24 13:47 Anion Gap 22.1 (5-19) H 11/09/24 13:47 BUN 28 mg/dL (6-20) H 11/09/24 13:47 Creatinine 0.7 mg/dL (0.5-0.9) 11/09/24 13:47 GFR Calculation 86.6 mL/min (90-130) L 11/09/24 13:47 Glucose 112 mg/dL (65-115) 11/09/24 13:47 Calculated Osmolality 300 mOsm/kg (285-295) H 11/09/24 13:47 Calcium 9.9 mg/dL (8.5-10.5) 11/09/24 13:47 Total Bilirubin 1.4 mg/dL (0.15-1.2) H 11/09/24 13:47 AST 75 U/L (0-32) H 11/09/24 13:47 ALT 104 U/L (0-33) H 11/09/24 13:47 Alkaline Phosphatase 90 U/L (35-105) 11/09/24 13:47 Total Protein 8.8 g/dL (6.6-8.7) H 11/09/24 13:47 Albumin 4.7 g/dL (3.5-5.2) 11/09/24 13:47 Globulin 4.1 g/dL (1.3-4.6) 11/09/24 13:47 Salicylates < 0.3 mg/dL (3-10) L 11/09/24 13:47 Acetaminophen < 5.0 ug/mL (10-30) L 11/09/24 13:47 No radiology studies performed this visit Discharge Plan Discharge Patient Disposition: Home Clinical Impression: Anxiety, Adjustment disorder with anxiety, Intellectual disability Condition: Stable Prescriptions: No Action acetaminophen 500 mg capsule 500 mg PO Q6H PRN (Reason: Pain (Scale Score 4-6)) levothyroxine [Synthroid] 137 mcg tablet 137 mcg PO DAILY Qty: 60 1RF lorazepam 1 mg tablet 1 mg PO BID Qty: 30 0RF quetiapine [Seroquel] 50 mg tablet 50 mg PO .qhs Qty: 30 2RF multivitamin Tablet 1 tab PO QAM aspirin [Aspir-81] 81 mg Tablet,Delayed Release (Dr/Ec) 81 mg PO DAILY PRN (Reason: Pain) magnesium 250 mg Tablet 250 mg PO DAILY omeprazole 40 mg capsule,delayed release(DR/EC) 40 mg PO DAILY PRN (Reason: Acid Reflux) Discharge Orders: Discharge ED (Routine); Ordered 11/09/24 Ordered By: Sriram Parker Referrals: Gonzalez Moreno MD [Primary Care Provider, Family Practice] Discharge Diet: Usual diet Discharge Activity: Increase activity as tolerated Patient Instructions: Opioid Safety, Pain Management Activity Restrictions/Additional Instructions: Thank you for choosing [facility] for your healthcare needs today. It is very important that you follow up as instructed or that you return to the Emergency Department should you have concerns or if your condition changes or worsens in any way. Seen in the emergency room and recommended admission to the [facility] for initiation of anxiety medications. Your guardian declined admission because it would require transfer since there are no available beds at our facility. I discussed with her on-call psychiatrist he recommends Ativan 1 every 8 hours as needed. Recommend that you follow-up at the crisis center if you have any further issues. You should also contact the [facility] to establish there to manage further medications. Print Language: Nauruan Coding Level of Care Code ED Spot Welder for Ariella Ziegler
[2024-11-09 13:37] VITALS: BP 152/77; PULSE 110; RESP 18; TEMP 36.6; O2SAT 96; BMI 31.1
[2024-11-09 13:51] LABS: Basophils % 0.4 %; Eosinophils % 0.2 %; Hematocrit 44.6 % (36-47); Lymphocytes % 20.5 %; Mean Corpuscular HGB Conc 35.2 g/dL (30-55); Mean Corpuscular Hemoglobin 31.1 pg (27-33); Mean Corpuscular Volume 88.3 fl (85-98); Monocytes # 0.8 10^3/uL (0.2-0.9); Monocytes % 8.6 %; Neutrophils # 6.82 10^3/uL (1.8-7.7); Nucleated Red Blood Cells % 0 %; Platelet Count 213 10^3/cmm (157-399); Red Blood Count 5.05 10^6/uL (3.85-5.65); Red Cell Distribution Width 12.1 % (12.1-15.1); White Blood Count 9.75 10^3/uL (3.29-11.43)
[2024-11-09 14:09] LABS: Alanine Aminotransferase 104 U/L (0-33); Albumin Level 4.7 g/dL (3.5-5.2); Alkaline Phosphatase 90 U/L (35-105); Anion Gap 22.1 (5-19); Aspartate Amino Transferase 75 U/L (0-32); Blood Urea Nitrogen 28 mg/dL (6-20); Calcium 9.9 mg/dL (8.5-10.5); Carbon Dioxide 14 mmol/L (22-29); Chloride 110 mmol/L (98-107); Creatinine Clr Calc Pharmacy 89.7781; Globulin 4.1 g/dL (1.3-4.6); Glomerular Filtration Rate 86.6 mL/min (90-130); Glucose 112 mg/dL (65-115); Osmolality Calculated 300 mOsm/kg (285-295); Potassium 4.1 mmol/L (3.5-5.1); Sodium 142 mmol/L (136-145); Total Bilirubin 1.4 mg/dL (0.15-1.2); Total Protein 8.8 g/dL (6.6-8.7)
[2024-11-09 14:13] LABS: Acetaminophen < 5.0 ug/mL (10-30); Salicylate < 0.3 mg/dL (3-10)
[2024-11-09] MEDS: LORazepam 1 mg Tablet PO (14:57)
[2024-11-09 15:44] VITALS: BP 127/80; PULSE 94; RESP 16; O2SAT 96
[2024-11-09 16:00] VITALS: PULSE 93; O2SAT 96
--- NOTE | 2024-11-09 16:53 | PC.NURSE ---
While attempting to get pt changed out in green scrubs, pt guardian states If she isn't getting here then I will take her home. She is not being sent anywhere else. This was relayed to charge nurse, relayed to Dr. Parker.
== END 2024-11-09 17:44 | disposition home or self-care (01) ==
PROVIDERS: Emergency Provider Family Medicine; PCP Family Medicine
DX: F43.22 Adjustment disorder with anxiety (principal); F79 Unspecified intellectual disabilities; Z79.82 Long term (current) use of aspirin
CPT/HCPCS: 80053; 80307; 85025; 99283; J9999

== ENCOUNTER 2024-11-19 16:11 | Emergency (ER) | payer MEDICARE, MEDICAID, SELFPAY ==
[2024-11-19 16:31] VITALS: BP 125/70; PULSE 108; RESP 18; TEMP 37.1; O2SAT 96; BMI 30.2
[2024-11-19 16:39] LABS: Basophils % 0.3 %; Eosinophils # 0.1 10^3/uL (0.0-0.8); Eosinophils % 0.9 %; Hematocrit 41.7 % (36-47); Lymphocytes % 19.5 %; Mean Corpuscular HGB Conc 34.8 g/dL (30-55); Mean Corpuscular Hemoglobin 31.3 pg (27-33); Mean Corpuscular Volume 89.9 fl (85-98); Mean Platelet Volume 13.1 fL (7.4-10.4); Monocytes # 0.8 10^3/uL (0.2-0.9); Monocytes % 7.6 %; Neutrophils # 7.15 10^3/uL (1.8-7.7); Neutrophils % 71.3 %; Nucleated Red Blood Cells % 0 %; Platelet Count 182 10^3/cmm (157-399); Red Blood Count 4.64 10^6/uL (3.85-5.65); Red Cell Distribution Width 12.3 % (12.1-15.1); White Blood Count 10.02 10^3/uL (3.29-11.43)
[2024-11-19 16:48] LABS: Slide Review Slide Review Perform
[2024-11-19 17:16] LABS: Alanine Aminotransferase 98 U/L (0-33); Albumin Level 4.3 g/dL (3.5-5.2); Alkaline Phosphatase 76 U/L (35-105); Aspartate Amino Transferase 77 U/L (0-32); Blood Urea Nitrogen 24 mg/dL (6-20); Calcium 9.6 mg/dL (8.5-10.5); Carbon Dioxide 15 mmol/L (22-29); Chloride 109 mmol/L (98-107); Creatinine Clr Calc Pharmacy 91.7331; Globulin 3.6 g/dL (1.3-4.6); Glomerular Filtration Rate 86.6 mL/min (90-130); Glucose 130 mg/dL (65-115); Osmolality Calculated 300 mOsm/kg (285-295); Sodium 142 mmol/L (136-145); Total Protein 7.9 g/dL (6.6-8.7)
[2024-11-19 17:17] LABS: Anion Gap 21.7 (5-19); Potassium 3.7 mmol/L (3.5-5.1)
--- NOTE | 2024-11-19 18:42 | USR_ITS ---
PROCEDURE INFORMATION: Exam: US Pelvis, Complete, Non-Obstetric Exam date and time: 11/19/2024 7:54 PM Age: 54 years old Clinical indication: Other: Endometrial thickening on CT 11/06/2024; Nulligravida 54 y. O. That has been post-menopausal for several years. Follow-up abnormal CT 11/06/2024; Additional info: Abnormmal endometrium on CT TECHNIQUE: Imaging protocol: Transabdominal pelvic nonobstetric ultrasound. Complete exam. Real time ultrasound with image documentation. COMPARISON: CT abdomen pelvis w con* [id number] 11/06/2024 1:31 PM FINDINGS: Uterus: There is abnormal cystic and solid vascularized endometrial tissue measuring up to 1.7 cm in thickness. No myometrial invasion is appreciated. Right ovary/adnexa: Physiologic appearance of the right ovary measuring 0.9 x 1.2 x 0.6 cm. Color Doppler flow imaging and spectral analysis confirm appropriate arterial and venous waveforms. Left ovary/adnexa: Physiologic appearance of the left ovary measuring 1.9 x 1.0 x 1.6 cm. Color Doppler flow imaging and spectral analysis confirm appropriate arterial and venous waveforms. Intraperitoneal space: No extraovarian adnexal mass. No pelvic free fluid. Urinary bladder: Normal. US/US pelv w/transvag [id number] IMPRESSION: Abnormal endometrial thickening is concerning for malignancy. No definite myometrial invasion. No adnexal mass.
[2024-11-19] MEDS: diphenhydrAMINE 50 mg/mL SDV 1mL IM (18:57)
[2024-11-19] MEDS: haloperidol inj 5 mg/mL INJ 1 mL IM ×2 (18:57→20:24)
[2024-11-19] MEDS: LORazepam 1 MG/0.5 ML injection IM ×2 (18:58→20:24)
[2024-11-19 19:06] VITALS: PULSE 100; RESP 18; O2SAT 98
--- NOTE | 2024-11-19 19:21 | PC.NURSE ---
Sister that is patients primary caregiver updated with information. Pending an u/s. Patients sister reports bad history with u/s quiana Ramos and wants to make sure that someone will be in the room when he does her scan. Caregiver informed that he will have a female in the room for exam.
[2024-11-19 21:00] VITALS: BP 136/75; PULSE 116; RESP 75; O2SAT 97
--- NOTE | 2024-11-19 21:34 | ED_ITS ---
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 Patient has had bright red blood in the toilet today. Similar symptoms earlier this month. Patient's sister states that she had complete workup on November [address] and abdominal pelvic CT. The abdomen and pelvic CT from November 06 revealed diverticulosis and abnormal endometrium and it was recommended that she have a follow-up pelvic ultrasound. Sister try to take her in for an outpatient pelvic ultrasound but she was too agitated and they could not complete the exam. Patient has been very agitated and anxious since earlier this month. Sister states that she has got very little sleep. The patient has a history of intellectual disability, hypothyroidism and paranoia. She was placed on trazodone recently to help her sleep and that did work last night according to her sister. Could not get any history from the patient. Related Data Home Medications ?Medication ?Instructions ?Recorded ?Confirmed acetaminophen 500 mg capsule 500 mg PO Q6H PRN Pain (S shahzad 04/08/20 11/10/24 Score 4-6) aspirin 81 mg tablet,delayed 81 mg PO DAILY PRN Pain 0 11/06/24 11/10/24 release magnesium 250 mg tablet 250 mg PO DAILY 11/06/2411/30 multivitamin 1 tab PO QAM 11/06/24 omeprazole 40 mg capsule,delayed 40 mg PO DAILY PRN Ac id Reflux 11/06/24 11/10/24 release Previous Rx's ?Medication ?Instructions ?Recorded levothyroxine 137 mcg tablet 137 mcg PO DAILY #60 tabs 11/10/24 (Synthroid) lorazepam 1 mg tablet 1 mg PO BID anxiety #30 tabs 11/10/24 trazodone 100 mg tablet 200 mg (2 x 100 mg) PO .qnig htly 11/19/24 #60 tabs Allergies Allergy/AdvReac Type Severity Reaction Status Date / Time No Known Allergies Allergy Verified 11/19/24 16:34 Review of Systems 2 General: Reports: 10 or more systems reviewed and unremarkable except in HPI and below GI: Reports: hematochezia Psych: Reports: anxiety PFSH ED 2 PFSH: Medical History Urge and stress incontinence Intellectual disability Bladder spasms COVID Pos COVID test 03/13/2021 Obesity GERD (gastroesophageal reflux disease) Impetigo any site Adult hypothyroidism Social History Smoking and tobacco/nicotine status: never used tobacco/nicotine Second hand smoke exposure: No Alcohol intake: never Substance/Drug Use: never Physical Exam 2 Const: COMMON NORMALS: alert GENERAL APPEARANCE: cooperative and comfortable HENMT: COMMON NORMALS: normocephalic, atraumatic, Normal nasal mucous membranes and turbinates present, moist oral mucous membranes and oropharynx normal HEAD & SCALP: normal to inspection, normocephalic and atraumatic F MARISA & SINUS: normal facial exam NOSE: Normal nasal mucous membranes and turbinates present Eye: COMMON NORMALS: Equal, round and reactive pupils present, EOMs intact bilaterally and conjunctivae normal GENERAL EYE: appearance normal, both eyes and all related structures CONJUNCTIVA: Yes conjunctivae normal PUPIL: Yes Equal, round and reactive pupils present Neck/C-Spine: COMMON NORMALS: supple and no JVD Chest: COMMONS NORMALS: normal inspection of the chest Resp: COMMON NORMALS: normal respiratory effort and clear to auscultation bilaterally AUSCULTATION: clear to auscultation bilaterally Cardio: COMMON NORMALS: no JVD, regular rate, regular rhythm, No gallops present (Cardio), No murmurs present (Cardio) and No rub (Cardio) RATE: r egular rate RHYTHM: regular rhythm GI: COMMON NORMALS: Normal to inspection, nondistended, normoactive bowel sounds present, Soft to palpation and non-tender AUSCULTATION: Yes normoactive bowel sounds PALPATION: Yes Soft to palpation : COMMON NORMALS: Yes no CVA tenderness BLADDER/KIDNEY EXAM: Yes no CVA tenderness Back/Pelvis: COMMON NORMALS: no CVA tenderness and thoracic and lumbar spine normal to inspection Extremity: COMMON NORMALS: normal to inspection Neuro: COMMON NORMALS: CN's II-XII intact bilaterally S ENSORIUM/ORIENTATION: Yes alert Psych: APPEARANCE: Yes grossly normal ACTIVITY/MOTOR BEHAVIOR: Yes psychomotor agitation Skin: COMMON NORMALS: no rashes or lesions noted, turgor normal and no jaundice GENERAL SKIN EXAM: no rashes or lesions noted and turgor normal Course 2 Vital Signs: Vital signs: Vital Signs Temperature 98.8 F 11/19/24 16:31 Pulse Rate 100 11/19/24 19:06 Respiratory Rate 18 11/19/24 19:06 Blood Pressure 125/70 11/19/24 16:31 Pulse Oximetry 98 11/19/24 19:06 Oxygen Delivery Me thod Room Air 11/19/24 19:06 MDM - GI Bleed Medical Decision Making CBC was normal. CMP revealed a bicarb of 15, BUN 24 and creatinine of 0.7. INR was 1.0. Patient was given Haldol, Benadryl and Ativan to help calm her down. We were able to obtain the pelvic ultrasound in the emergency department. The ultrasound does reveal endometrial hyperplasia versus endometrial carcinoma. Patient will need to follow-up with gynecology for further evaluation. I discussed all of this with the patient's sister and she understands. She also has an appointment at 10 AM tomorrow with psychiatry to help with the anxiety and insomnia issues. Patient was discharged in stable condition. Lab Data 11/19/24 16:24 11/19/24 16:24 Laboratory Results WBC 10.02 10^3/uL (3.29-11.43) 11/19/24 16:24 RBC 4.64 10^6/uL (3.85-5.65) 11/19/24 16:24 Hgb 14.50 g/dL (11.27-16.99) 11/19/24 16:24 Hct 41.7 % (36-47) 11/19/24 16:24 MCV 89.9 fl (85-98) 11/19/24 16:24 MCH 31.3 pg (27-33) 11/19/24 16:24 MCHC 34.8 g/dL (30-55) 11/19/24 16:24 RDW 12.3 % (12.1-15.1) 11/19/24 16:24 Plt Count 182 10^3/cmm (157-399) 11/19/24 16:24 MPV 13.1 fL (7.4-10.4) H 11/19/24 16:24 Neut % (Auto) 71.3 % 11/19/24 16:24 Lymph % (Auto) 19.5 % 11/19/24 16:24 [place] % (Auto) 7.6 % 11/19/24 16:24 Eos % (Auto) 0.9 % 11/19/24 16:24 Baso % (Auto) 0.3 % 11/19/24 16:24 Neut # (Auto) 7.15 10^3/uL (1.8-7.7) 11/19/24 16:24 Lymph # (Auto) 2.0 10^3/uL (0.8-4.8) 11/19/24 16:24 [place] # (Auto) 0.8 10^3/uL (0.2-0.9) 11/19/24 16:24 Eos # (Auto) 0.1 10^3/uL (0.0-0.8) 11/19/24 16:24 Baso # (Auto) 0.0 10^3/uL (0.0-0.1) 11/19/24 16:24 Nucleated RBC % (auto) 0 % 11/19/24 16:24 Nucleated RBCs # 0.0 /100WBC 11/19/24 16:24 PT 13.90 SECONDS (12.1-14.9) 11/19/24 16:24 INR 1.00 (0.8-1.2) 11/19/24 16:24 Sodium 142 mmol/L (136-145) 11/19/24 16:24 Potassium 3.7 mmol/L (3.5-5.1) 11/19/24 16:24 Chloride 109 mmol/L (98-107) H 11/19/24 16:24 Carbon Dioxide 15 mmol/L (22-29) L 11/19/24 16:24 Anion Gap 21.7 (5-19) H 11/19/24 16:24 BUN 24 mg/dL (6-20) H 11/19/24 16:24 Creatinine 0.7 mg/dL (0.5-0.9) 11/19/24 16:24 GFR Calculation 86.6 mL/min (90-130) L 11/19/24 16:24 Glucose 130 mg/dL (65-115) H 11/19/24 16:24 Calculated Osmolality 300 mOsm/kg (285-295) H 11/19/24 16:24 Calcium 9.6 mg/dL (8.5-10.5) 11/19/24 16:24 Total Bilirubin 1.0 mg/dL (0.15-1.2) 11/19/24 16:24 AST 77 U/L (0-32) H 11/19/24 16:24 ALT 98 U/L (0-33) H 11/19/24 16:24 Alkaline Phosphatase 76 U/L (35-105) 11/19/24 16:24 Total Protein 7.9 g/dL (6.6-8.7) 11/19/24 16:24 Albumin 4.3 g/dL (3.5-5.2) 11/19/24 16:24 Globulin 3.6 g/dL (1.3-4.6) 11/19/24 16:24 All radiology interpretation(s) finalized by discharge Discharge Plan Discharge Patient Disposition: Home Clinical Impression: Endometrial hyperplasia, Anxiety Condition: Stable Prescriptions: No Action acetaminophen 500 mg capsule 500 mg PO Q6H PRN (Reason: Pain (Scale Score 4-6)) levothyroxine [Synthroid] 137 mcg tablet 137 mcg PO DAILY Qty: 60 1RF lorazepam 1 mg tablet 1 mg PO BID Qty: 30 0RF trazodone 100 mg tablet 200 mg PO .qnightly Qty: 60 2RF multivitamin Tablet 1 tab PO QAM aspirin [Aspir-81] 81 mg Tablet,Delayed Release (Dr/Ec) 81 mg PO DAILY PRN (Reason: Pain) magnesium 250 mg Tablet 250 mg PO DAILY omeprazole 40 mg capsule,delayed release(DR/EC) 40 mg PO DAILY PRN (Reason: Acid Reflux) Discharge Orders: Discharge ED (Routine); Ordered 11/19/24 Ordered By: Martin Hendricks Referrals: Gonzalez Moreno MD [Primary Care Provider, Family Practice] Patient Instructions: Endometrial Biopsy Activity Restrictions/Additional Instructions: Follow-up with primary care provider soon as possible with referral to gynecology. Print Language: Persian Coding Level of Care Code ED Power Project Manager for Ariella Ziegler
--- NOTE | 2024-11-19 22:15 | PC.NURSE ---
Chaperoned Richard for u/s exam. Also present, Antoinette monge. Pt tolerated procedure well and sister( caregiver) present in room.
[2024-11-19 22:21] VITALS: BP 130/97; PULSE 115; O2SAT 97
== END 2024-11-19 22:22 | disposition home or self-care (01) ==
PROVIDERS: Emergency Medicine; Emergency Provider Emergency Medicine; PCP Family Medicine
DX: N85.00 Endometrial hyperplasia, unspecified (principal); F41.9 Anxiety disorder, unspecified; Z79.82 Long term (current) use of aspirin
CPT/HCPCS: 36415; 76830; 76856; 80053; 85025; 85610; 96372; 99284; J1200; J1630; J2060

== ENCOUNTER 2025-04-21 06:54 | Day surgery (SDC) | payer OTHER, MEDICAID, SELFPAY ==
[2025-04-21] VITALS (10 sets, daily range): BP systolic 109–126; BP diastolic 69–93; PULSE 80–109; RESP 7–24; TEMP 36.2–36.6; O2SAT 92–100; BMI 29.8
--- NOTE | 2025-04-21 | W.PM.OPSFHP ---
Same Day Surgery H&P Indication for Procedure/HPI DATE OF PROCEDURE: April 21, 2025 CHIEF COMPLAINT/INDICATIONFOR SURGICAL PROCEDURE: postmenopausal bleeding PREOP DIAGNOSIS: postmenopausal bleeding PLANNED PROCEDURE: Operation Date: 04/21/25 08:35 Proposed Procedures p Hysteroscopy w/ Endometrial Sampling 64622 55445 N95.0(Not Applicable) - Jamir Foreman MD s POSSIBLE Endometrial Poylpectomy(Not Applicable) - Jamir Foreman MD Medications/Allergies* Home Medications ?Medication ?Instructions ?Recorded ?Confirmed ?Type acetaminophen 500 mg capsule 500 mg PO Q6H PRN Pain (Scale 04/08/20 04/20/25 History Score 4-6) aspirin 81 mg tablet,delayed 81 mg PO DAILY PRN Pain 11/06/24 04/20/25 History release multivitamin 1 tab PO QAM 11/06/24 04/20/25 History omeprazole 40 mg capsule,delayed 40 mg PO DAILY PRN Acid Reflux 11/06/24 04/20/25 History release duloxetine 20 mg capsule,delayed 20 mg PO BID 12/30/24 04/20/25 History release levothyroxine 150 mcg capsule 150 mcg PO DAILY 12/30/24 04/20/25 History magnesium 200 mg tablet 400 mg PO DAILY 02/04/25 04/20/25 History lorazepam 0.5 mg tablet 0.5 mg PO BID 04/20/25 04/20/25 History Allergies/Adverse Reactions Allergy/AdvReac Type Severity Reaction Status Date / Time No Known Allergies Allergy Verified 02/04/25 10:12 Pertinent History/Comorbid Conditions* Medical History (Updated 01/08/25 @ 14:00 by Renata Chaudhari NP) Anxiety disorder with panic attacks UTI (urinary tract infection) Urge and stress incontinence Intellectual disability Bladder spasms COVID Pos COVID test 03/13/2021 Obesity GERD (gastroesophageal reflux disease) Impetigo any site Adult hypothyroidism Social History Smoking and tobacco/nicotine status: never used tobacco/nicotine Second hand smoke exposure: No Alcohol intake: never Substance/Drug Use: never Pertinent Exam Findings alert, oriented x 3, clear to auscultation bilaterally and regular rate & rhythm Recommendations Surgery/Procedure today Coding Level of Care Code Acute Code for Chg Fwd
--- NOTE | 2025-04-21 08:11 | W.PM.OPSUD ---
Surgery/Procedure H&P Update DATE OF PROCEDURE: April 21, 2025 DATE H&P PERFORMED: 02/04/25 H&P UPDATE INFORMATION: I have reviewed H&P completed within last 30 days, I have examined patient prior to procedure and No changes to prior documentation PREOP DIAGNOSIS: postmenopausal bleeding PLANNED PROCEDURE: Operation Date: 04/21/25 08:35 Proposed Procedures p Hysteroscopy w/ Endometrial Sampling [id number] N95.0(Not Applicable) - Jamir Foreman MD s POSSIBLE Endometrial Poylpectomy(Not Applicable) - Jamir Foreman MD
--- NOTE | 2025-04-21 09:17 | ANES.PREANE2 ---
Pre-Anesthetic Assessment Height/Weight: Height 1.63 m Weight 78.925 kg Temp Pulse Resp BP Pulse Ox O2 Del Method 97.9 F 96 18 122/93 97 Room Air 04/21/25 07:14 04/21/25 07:14 04/21/25 07:14 04/21/25 07:14 04/21/25 07:14 04/21/25 07:14 Preop Diagnosis: postmenopausal bleeding Operation Date: 04/21/25 08:35 Proposed Procedures p Hysteroscopy w/ Endometrial Sampling [id number] N95.0(Not Applicable) - Jamir Foreman MD s POSSIBLE Endometrial Poylpectomy(Not Applicable) - Jamir Foreman MD Familial anesthetic complications: none Was Beta Cayden taken within 24 hours: N/A Was Clonidine taken within 24 hours: N/A Last intake: Intake Last Liquid Date 04/20/25 Last Liquid Time 20:00 Last Solid Date 04/20/25 Last Solid Time 20:00 Social No alcohol and No tobacco Exam alert, oriented x 3, clear to auscultation bilaterally and regular rate & rhythm GI Gastroesophageal Reflux Disease Metabolic Thyroid Disease Anesthetic Plan ASA status: 3 Anesthesia: General Risk of > 500 ml blood loss (7ml/kg in children): No Medications/Allergies Home Medications ?Medication ?Instructions ?Recorded ?Confirmed ?Last Taken ?Type acetaminophen 500 mg capsule 500 mg PO Q6H PRN Pain (Scale 04/08/20 04/20/25 10/04/23 History Score 4-6) aspirin 81 mg tablet,delayed 81 mg PO DAILY PRN Pain 11/06/24 04/20/25 03/30/25 History release multivitamin 1 tab PO QAM 11/06/24 04/20/25 04/20/25 History omeprazole 40 mg capsule,delayed 40 mg PO DAILY PRN Acid Reflux 11/06/24 04/20/25 Unknown History release duloxetine 20 mg capsule,delayed 20 mg PO BID 12/30/24 04/20/25 04/20/25 History release levothyroxine 150 mcg capsule 150 mcg PO DAILY 12/30/24 04/20/25 04/20/25 History magnesium 200 mg tablet 400 mg PO DAILY 02/04/25 04/20/25 04/20/25 History lorazepam 0.5 mg tablet 0.5 mg PO BID 04/20/25 04/20/2504/20/25 History Allergies Allergy/AdvReac Type Severity Reaction Status Date / Time No Known Allergies Allergy Verified 02/04/25 10:12 Current Medications Generic Name Dose Route Start Last Admin Trade Name Jaspreet PRN Reason Stop Dose Admin Sodium Chloride 1,000 mls @ 30 mls/hr 04/21/25 07:00 04/21/25 07:40 Sodium Chloride 0.9% IV 04/22/25 06:59 30 mls/hr .Q24H GURPREET Administration PFSH Anesthesia Medical History Anxiety disorder with panic attacks UTI (urinary tract infection) Urge and stress incontinence Intellectual disability Bladder spasms COVID Pos COVID test 03/13/2021 Obesity GERD (gastroesophageal reflux disease) Impetigo any site Adult hypothyroidism Social History Smoking and tobacco/nicotine status: never used tobacco/nicotine Second hand smoke exposure: No Alcohol intake: never Substance/Drug Use: never
--- NOTE | 2025-04-21 10:30 | ANE.PACU2 ---
Inpatient post-anesthesia follow up: Airway intact: Yes Vital signs: Temperature 97.2 F Pulse Rate 80 Respiratory Rate 17 Blood Pressure 116/69 Pulse Oximetry 100 Oxygen Delivery Me thod Room Air Oxygen Flow Rate 10 Fraction of Inspir ed Oxygen Hydration adequate: Yes Nausea and vomiting: No Pain level: 1 Mental status: Baseline
--- NOTE | 2025-04-21 11:05 | PM.OP ---
Operative Report Date of procedure: April 21, 2025 Pre-op diagnosis: postmenopausal bleeding Post-op diagnosis: same Post-op findings: One large endometrial polyp Minimal endometrial tissue Normal appearing cervix Procedure done: Hysteroscopy Endometrial sampling and polypectomy with Myosure Implants: none Specimens removed/disposition: endometrial tissue Surgeon: Jamir Foreman MD Anesthesia: MAC Estimated blood loss (mL): 0 Complications: none Findings: see above Condition: stable Disposition: PACU Brief History: 55 y.o. with postmenopausal bleeding Procedure: Patient was taken to the operating room. Anesthesia was induced. Patient was placed in dorsolithotomy position, prepped and draped for hysteroscopy. A bivalve speculum was placed in the vagina. The cervix and vagina were normal. The anterior lip of the cervix was grasped with a sharp-toothed tenaculum. The cervix was serially dilated with Hegar dilators. The uterus was sounded to 8 cm. A hysteroscope was placed into the endometrial cavity. There was one large endometrial polyp. Minimal endometrial tissue was seen. The endocervical canal was normal. The endometrial cavity was otherwise normal. A Myosure device was then inserted and the endometrial polyp was removed and sent to pathology. Endometrial sampling was also done. The endometrial cavity was seen to be intact. The hysteroscope and Myosure were then removed. Endometrial tissue was sent to pathology. The sharp-toothed tenaculum was removed. There was no bleeding from the endometrial cavity or cervix. The patient was then placed supine and awakened and taken to the PACU. Postop condition: stable EBL: none Sponge and instruments counts were normal x 2 Complications: none
== END 2025-04-21 10:30 | disposition home or self-care (01) ==
PROVIDERS: PCP Family Medicine; Visit Provider Obstetrics & Gynecology
PROC: 0UJD8ZZ Inspection of Uterus and Cervix, Via Natural or Artificial Opening Endoscopic (ICD-10-PCS; CPT 58555; principal; 2025-04-21 08:25)
PROC: (CPT 58558; 2025-04-21 08:25)
DX: N95.0 Postmenopausal bleeding (principal); N84.0 Polyp of corpus uteri; Z79.82 Long term (current) use of aspirin; K21.9 Gastro-esophageal reflux disease without esophagitis; F41.0 Panic disorder [episodic paroxysmal anxiety]; E66.9 Obesity, unspecified; Z68.29 Body mass index [BMI] 29.0-29.9, adult; E03.9 Hypothyroidism, unspecified
CPT/HCPCS: 58558; 88305; J1100; J2405; J2704; J3010; J3490; J7030; J9999

== ENCOUNTER 2025-06-16 08:18 | Outpatient (CLI) | payer MEDICARE, MEDICAID, SELFPAY ==
--- NOTE | 2025-06-16 08:30 | CT_ITS ---
WS: [id number] CT HEAD NONCONTRAST HISTORY: hallucinations TECHNIQUE: Contiguous axial imaging performed through the brain. Bone and soft tissue windows. Sagittal and coronal reformats reviewed. All CT scans at [facility] use at least one of these dose optimization techniques: automated exposure control; mA and/or kV adjustment per patient size (includes targeted exams where dose is matched to clinical indication); or iterative reconstruction. DLP: 1011.64 mGy.cm COMPARISON: 11/06/2024 No acute intracranial hemorrhage, midline shift or mass effect. Mild cerebral atrophy. No prior infarcts. Mild small vessel changes. Ventricles: Normal size with no hydrocephalus. No inferior displacement the cerebellar tonsils. Paranasal sinuses: As visualized are clear. Mastoid air cells: Small amount of fluid in the LEFT mastoid air cell. Calvarium and scalp: Skull is intact with no soft tissue edema or swelling. CT/CT head wo con* [id number] IMPRESSION: 1. Mild cerebral and cerebellar atrophy and small vessel changes. 2. No acute hemorrhage or infarct.
== END 2025-06-16 08:19 | disposition home or self-care (01) ==
LOC: RAD 08:20
PROVIDERS: PCP Family Medicine; Visit Provider Family Medicine
DX: R44.3 Hallucinations, unspecified (principal); G31.9 Degenerative disease of nervous system, unspecified
CPT/HCPCS: 70450